=== PATIENT | male | born 1955 | race Caucasian/White ===

== ENCOUNTER → 2020-04-05 12:16 | Outpatient (BNVA) | payer OTHER, SELFPAY | PROVIDERS: PCP Internal Medicine; Visit Provider Orthopaedic Surgery | DX: Z76.89 Persons encountering health services in other specified circumstances (principal) ==

== ENCOUNTER 2021-03-05 07:06 | Outpatient (REF) | payer OTHER, SELFPAY ==
[2021-03-05 11:36] LABS: Alanine Aminotransferase 15 U/L (0-40); Anion Gap 12 (12-20); Aspartate Amino Transferase 16 U/L (5-37); Blood Urea Nitrogen 14 mg/dL (9-16); Carbon Dioxide 26 mmol/L (22-29); Chloride 102 mmol/L (96-108); Cholesterol 197 mg/dL; Estimated Glomerular Filt Rate > 60; Glucose Fasting 97 mg/dL (60-99); HDL Cholesterol 70 mg/dL; LDL Cholesterol Calculated 117 mg/dl; Potassium 4.4 mmol/L (3.3-5.1); Sodium 136 mmol/L (135-145); Triglycerides 52 mg/dL
[2021-03-05 11:51] LABS: PSA,Total (Free>4and<10) 0.32 ng/mL (0.00-4.00)
== END 2021-03-05 07:07 | disposition home or self-care (01) ==
LOC: HO.HMGCLDS 07:06
PROVIDERS: PCP Internal Medicine; Visit Provider Internal Medicine
DX: Z00.00 Encounter for general adult medical examination without abnormal findings (principal); I10 Essential (primary) hypertension; Z12.5 Encounter for screening for malignant neoplasm of prostate
CPT/HCPCS: 36415; 80048; 80061; 84153; 84450; 84460

== ENCOUNTER 2021-04-25 15:07 | Outpatient (REF) | payer OTHER, SELFPAY ==
--- NOTE | ~2021-04-25 | CT_ITS ---
EXAMINATION: CT CHEST SCREENING CLINICAL INFORMATION: Current smoker. 45 pack year history. COMPARISON: Previous chest CT most recent November 2019 TECHNIQUE: Multidetector volumetric CT imaging of the chest is performed without contrast using low dose technique. Additional 2-D coronal and sagittal reformatted images and axial 3-D maximum intensity projection (MIP) images are generated on the CT workstation. This CT examination was performed using dose optimization techniques as appropriate, variously including the following: *Automated exposure control *Adjustment of mA and/or kV according to patient size (this includes techniques or standardized protocols for targeted exams where dose is matched to indication/reason for exam; i.e. extremities or head) *Use of iterative reconstruction technique DLP: 191 mGy-cm FINDINGS: LUNGS: There is evidence of mild paraseptal emphysema. There are multiple new 1-2 mm bilateral predominantly upper lobe nodules or micronodules. Largest nodule measures 2 mm in the right upper lobe axial image 170 series 5. This is probably related to respiratory bronchiolitis or airways disease. There is no endobronchial or endotracheal lesion. MEDIASTINUM: There is coronary artery calcification. The mediastinum is otherwise normal. PLEURA: There is no pleural effusion. No pleural mass or thickening. AXILLA: No lymphadenopathy. UPPER ABDOMEN: Unremarkable. OSSEOUS STRUCTURES: There are degenerative changes of the spine. CT/CT lung screening IMPRESSION: Mild paraseptal emphysema. Multiple new predominantly upper lobe nodules or micronodules probably related to respiratory bronchiolitis from smoking. Differential would include hypersensitivity pneumonitis and granulomatous disease. Coronary artery calcification. ASSESSMENT: Lung-RADS category 2: Benign. RECOMMENDATION: Annual low-dose chest CT followup recommended.
== END 2021-04-25 15:08 | disposition home or self-care (01) ==
LOC: HO.CT 15:07
PROVIDERS: Visit Provider Physician Assistant Medical
DX: F17.210 Nicotine dependence, cigarettes, uncomplicated (principal)
CPT/HCPCS: 71271

== ENCOUNTER 2022-03-18 07:35 | Outpatient (REF) | payer OTHER, SELFPAY ==
[2022-03-18 12:20] LABS: Alanine Aminotransferase 14 U/L (0-40); Albumin Level 4.2 g/dL (3.5-5.0); Alkaline Phosphatase 61 U/L (39-117); Anion Gap 11 (12-20); Aspartate Amino Transferase 17 U/L (5-37); Bilirubin Total 0.6 mg/dL (0.0-1.0); Blood Urea Nitrogen 21 mg/dL (9-16); Calcium 9.1 mg/dL (8.4-10.2); Carbon Dioxide 27 mmol/L (22-29); Chloride 97 mmol/L (96-108); Cholesterol 209 mg/dL; Estimated Glomerular Filt Rate > 60; Glucose Fasting 94 mg/dL (60-99); HDL Cholesterol 74 mg/dL; LDL Cholesterol Calculated 124 mg/dl; PSA,Total (Free>4and<10) 0.85 ng/mL (0.00-4.00); Potassium 4.4 mmol/L (3.3-5.1); Sodium 131 mmol/L (135-145); Total Protein 7.1 g/dL (6.5-8.0); Triglycerides 59 mg/dL
== END 2022-03-18 07:36 | disposition home or self-care (01) ==
LOC: HO.HMGCLDS 07:35
PROVIDERS: PCP Internal Medicine; Visit Provider Internal Medicine
DX: Z00.01 Encounter for general adult medical examination with abnormal findings (principal); Z12.5 Encounter for screening for malignant neoplasm of prostate; Z71.89 Other specified counseling; F17.200 Nicotine dependence, unspecified, uncomplicated
CPT/HCPCS: 36415; 80053; 80061; 82306; 84153

== ENCOUNTER 2022-04-18 09:33 | Outpatient (REF) | payer OTHER, SELFPAY ==
[2022-04-18 12:30] LABS: Influenza A PCR NEGATIVE (Negative); Influenza B PCR NEGATIVE (Negative); Resp Syncy Virus RNA Qual PCR NEGATIVE (Negative); SARS COV2 PCR INHOUSE NEGATIVE (Negative)
== END 2022-04-18 09:34 | disposition home or self-care (01) ==
LOC: HO.LAB 09:33
PROVIDERS: Visit Provider Internal Medicine
DX: Z20.822 Contact with and (suspected) exposure to COVID-19 (principal); R43.9 Unspecified disturbances of smell and taste
CPT/HCPCS: 0241U

== ENCOUNTER 2023-03-02 13:50 | Outpatient (REF) | payer OTHER, SELFPAY ==
--- NOTE | ~2023-03-02 | CT_ITS ---
EXAMINATION: CT CHEST SCREENING CLINICAL INFORMATION: Current smoker with 45 pack-year smoking history COMPARISON: Previous CTs, most recent, 04/25/2021 11 TECHNIQUE: Multidetector volumetric CT imaging of the chest is performed without contrast using low dose technique. Additional 2D coronal and sagittal reformatted images and axial 3D maximum intensity projection (MIP) images are generated on the CT workstation. This CT examination was performed using dose optimization techniques as appropriate, variously including the following: *Automated exposure control *Adjustment of mA and/or kV according to patient size (this includes techniques or standardized protocols for targeted exams where dose is matched to indication/reason for exam; i.e. extremities or head) *Use of iterative reconstruction technique DLP: 44 mGy-cm FINDINGS: [employer]: Hyperinflated but clear lungs. Degenerative changes and scoliosis. LUNGS: Trachea and bronchi are patent. Mild bronchial wall thickening. Centrilobular emphysema and hyperinflation. Minor lingular atelectasis. No consolidations or groundglass opacities. No suspicious lung nodules. Scattered micronodules. New 2 mm subpleural MISSAEL nodule, 4:19. MEDIASTINUM: Unremarkable thyroid. Nonspecific mediastinal lymph nodes. Nonenlarged heart. Trace pericardial thickening/fluid. Nonaneurysmal aorta with atherosclerotic calcifications. Nonenlarged pulmonary arteries. CORONARY ARTERY CALCIFICATION: Moderately severe. PLEURA: There is no pleural effusion. No pleural mass or thickening. AXILLA: No lymphadenopathy. UPPER ABDOMEN: Unremarkable OSSEOUS STRUCTURES: Prominent anterior osteophytes. No suspicious osseous lesions. CT/CT lung screening IMPRESSION: Small pulmonary nodules as described. ASSESSMENT: Lung-RADS category 2: Benign RECOMMENDATION: Routine annual low-dose CT screening in 12 months.
== END 2023-03-02 13:51 | disposition home or self-care (01) ==
LOC: HO.CT 13:50
PROVIDERS: PCP Internal Medicine; Visit Provider Physician Assistant Medical
DX: Z12.2 Encounter for screening for malignant neoplasm of respiratory organs (principal); F17.210 Nicotine dependence, cigarettes, uncomplicated
CPT/HCPCS: 71271

== ENCOUNTER 2023-03-23 07:47 | Outpatient (AMB) | payer OTHER, SELFPAY ==
--- NOTE | 2023-03-23 08:05 | MHC.PC.OV ---
Vital Signs 03/23/23 08:06 Height 5 ft 9 in Weight 144 lb 2 oz BMI 21.3 BP 130/72 Blood Pressure Location Rt brachial Position Sitting Pulse 69 Pulse Source Pulse Oximeter Pulse Oximetry (%) 99 Oxygen Delivery Method Room Air Intake Visit Reasons: Annual Physical - due for colonoscopy Intake Note: Pt is here for his Annual PE Allergies No Known Allergies [No Known Allergies*] Allergy (Verified 03/23/23 08:22) Medication List - Last Reconciled 03/23/23 by Valentine Polanco MD sildenafil 100 mg PO DAILY PRN Tobacco use date assessed: 03/23/23 Fall risk assessment: No Falls in past year Last assessed Fall Risk: 03/23/23 Dental Screening Dental Screen Date: 03/23/23 Did you have a dental visit in the last 12 months?: Yes Did you have a dental problem in the last 6 months where you did not have access to dental care?: No Was dental information given to patient?: Patient has dentist HPI HPI Comments History of Present Illness Details 68-year-old male here today for physical exam . No complaints at present time except for recurrent rectal dysfunction, requesting a refill on his sildenafil. He was found to have central lobular emphysema on a low-dose CT scan done March 02 but patient remains asymptomatic he however continues to smoke cigarettes, with no desire to quit at present time . [facility] Medical History (Updated 03/23/23 @ 08:50 by Valentine Polanco MD) Vitamin D deficiency Emphysema lung Smoker unmotivated to quit Erectile dysfunction Surgical History History of rotator cuff surgery Family History Father ETOH abuse Myocardial infarction CVD (cardiovascular disease) Mother Stomach cancer Sister Diabetes mellitus Sister Diabetes mellitus Sister Breast cancer CAD (coronary artery disease) Brother CVD (cardiovascular disease) Myocardial infarction Cancer Daughter Substance use disorder Social History Housing: House Alcohol intake: current Patient Tobacco Use Status: Current everyday Tobacco user Cigarette Packs Per Day: 1 Cigarettes Per Day: 20.0 e-Cigarette/Vaping Use: Never Used Second Hand Smoke Exposure: No service: No Current occupational status: employed 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 1. Little interest or pleasure in doing things: not at all 2. Feeling down, depressed, or hopeless: not at all 3. Trouble falling or staying asleep, or sleeping too much: not at all 4. Feeling tired or having little energy: not at all 5. Poor appetite or overeating: not at all 6. Feeling bad about yourself - or that you are a failure or have let yourself or your family down: not at all 7. Trouble concentrating on things, such as reading the newspaper or watching television: not at all 8. Moving or speaking so slowly that other people could have noticed. Or the opposite - being so fidgety or restless that you have been moving around a lot more than usual: not at all 9. Thoughts that you would be better off or of hurting yourself in some way: not at all Total score: 0 Depression Screening Interpretation: Negative Depression Screening Done: Yes 33206 - PHQ-9 Billing: Yes Source: Developed by Drs. Milad Celaya, Nidia Taylor, Mauro Frost and colleagues, with an educational blayne from [employer]. Thrive Questionnaire Date Thrive assessed: 03/23/23 I am a: Patient What is your living situation today?: I have a steady place to live Within the past 12 months, did the food you bought not last and you didn't have the money to get more?: Never true Within the past 12 months, did you worry whether your food would run out before you got money to buy more?: Never true Do you have trouble paying for medicines?: No Do you have trouble getting transportation to medical appointments?: No Do you have trouble paying your heating and electricity bill?: No Do you have trouble taking care of your child, family member or friend?: No Do you have trouble with day-to-day activities such as bathing, preparing meals, shopping, managing finances, etc.?: No Are you currently unemployed and looking for a job?: No Are you interested in more education?: No AUDIT C Alcohol Use Questionnaire (AUDIT-C) 1. How often do you have a drink containing alcohol?: 4 or more times a week 2. How many drinks containing alcohol do you have on a typical day when you are drinking?: 5 or 6 3. How often do you have six or more drinks on one occasion?: Daily or almost daily Total Score: 10 CHRISTY-7 AMB Questionnaire CHRISTY-7 Date CHRISTY - 7 assessed: 03/23/23 Feeling nervous, anxious, or on edge: 0 = Not at all Not being able to stop or control worryin = Not at all Worrying too much about different things: 0 = Not at all Trouble relaxin = Not at all Being so restless that it is hard to sit still: 0 = Not at all Becoming easily annoyed or irritable: 0 = Not at all Feeling afraid as if something awful might happen: 0 = Not at all Total CHRISTY-7 score (0-4 normal; 5-9 mild; 10-14 moderate; 15-21 severe): 0 Source: Developed by Drs. Milad Celaya, Nidia Taylor, Mauro Frost and colleagues, with an educational blayne from [employer]. CHRISTY-7 Assessment Billing CHRISTY-7 Assessment Tool: CHRISTY-7 Assessment 87501 Review of Systems Const Denies body aches, Denies fatigue, Denies fever(s), Denies headache(s) and Denies weakness Eyes Details: Seen at [facility] Ophthalmology Department,no change in vision Denies change in vision and Reports requires corrective lenses ENT Reports Normal hearing present, Denies dizziness, Denies headache(s), Denies nasal congestion, Denies nasal discharge and Denies sore throat Card Denies chest pain, Denies lightheadedness, Denies palpitations and Denies dyspnea Resp Denies chest congestion, Denies cough, Denies dyspnea and Denies wheezing GI Denies abdominal pain, Denies melena, Denies hematochezia, Denies change in bowel habits and Denies heartburn Reports erectile dysfunction, Denies genital lesions, Denies genital pain, Denies dysuria, Denies nocturia, Denies penile discharge, Denies testicular mass, Denies urinary frequency and Denies urinary urgency Musc Reports stiffness Skin/Breast Denies lesions and Denies rash Neuro Reports Normal hearing present, Denies dizziness, Denies headache(s), Denies Sensory deficit (Neuro) and Denies weakness Psych Reports as per HPI Endo Denies fatigue, Denies polydipsia, Denies polyuria and Denies palpitations Julio/Lymph Denies easy bruising Aller/Immun Denies seasonal rhinorrhea and Denies wheezing Physical exam (Primary Care) Vital Signs: Last Vital Signs Pulse 69 03/23/23 08:06 BP 130/72 03/23/23 08:06 Pulse Ox 99 03/23/23 08:06 Oxygen Delivery Method Room Air 03/23/23 08:06 BMI result Body Mass Index 21.3 Tobacco/Smoking Status: Tobacco use Status Tobacco use date assessed 03/23/23 03/23/23 08:14 Patient Tobacco Use Status Current everyday Tobacco 03/23/23 08:06 e-Cigarette/Vaping Use Never Used 03/23/23 08:06 PHQ-9: PHQ-9 Score PHQ-9: Total score 0 03/23/23 08:26 Depression Screening Interpretation: Negative Thrive Assessment: Date of Thrive Assessment Date Thrive assessed 03/23/23 03/23/23 08:17 Const General: cooperative, healthy appearing, no acute distress and alert Orientation/consciousness: patient oriented x3 Limitations: no limitations HENMT Head: Yes normocephalic Ears: hearing grossly normal bilaterally, external ears normal, TM's normal bilaterally and EAC's normal General nose exam: Normal external nose present and No nasal discharge present Face and sinus: Yes face symmetric Mouth: tongue normal, oropharynx normal and moist mucous membranes Eyes Conjunctivae: conjunctivae normal Sclerae: sclerae normal Pupils: Equal, round and reactive pupils present EOM: EOMs intact bilaterally Neck Neck: Yes full ROM and Yes no lymphadenopathy Thyroid: Thyroid normal Carotids: normal carotid upstroke Lymphatic: no lymphadenopathy noted Chest Chest palpation & inspection: normal inspection of the chest Resp Effort & Inspection: normal respiratory effort and able to speak in complete sentences Auscultation: diminished lung sounds bilateral Cardio Jugular venous distension: no JVD Rate: regular rate Rhythm: regular rhythm Heart sounds: S1 normal heart sound present and S2 normal heart sound present GI Inspection: Yes normal to inspection Palpation (GI): Soft to palpation Auscultation: normal bowel sounds General: Yes no CVA tenderness Male General Exam: Yes normal external exam, No hernia, No inguinal lymphadenopathy and No Genital lesions present Penis: normal penis and No Genital lesions present Back/Spine/Pelvis Back: no CVA tenderness Skin General skin exam: no rashes or lesions noted Neuro General: patient oriented x3, gait normal, moves all extremities, no focal motor deficits and CN's II-XI intact bilaterally Cranial nerves: Yes Equal, round and reactive pupils present and Yes Normal hearing present Cognition (Neuro): normal cognition Gait exam (Neuro): Normal gait present Motor exam (neuro): 5/5 motor strength present throughout Sensory Exam: No Sensory deficit (Neuro) Extrem General: Yes normal to inspection, Yes full ROM, Yes no pedal edema and Yes normal gait Psych Appearance: grossly normal and well kempt Mental Status: mental status grossly normal Speech and movement: Normal speech and movement present Affect: normal affect Attitude: cooperative Thought process: Normal thought process present Immunizations pneumoc 20-hetal conj-dip cr(PF) 0.5 mL IM syringe Performing Provider: Valentine Polanco MD Performing Location: [facility] Administered by: Sherry Pineda CMA on 03/23/23 08:38 Dose Route Admin Location Dispensed Lot Number Expiration Date [employer] 0.5 mL IM Left Deltoid 0.5 mL [id number] 12/14/23 9285-7851-26 Dezide/GT [employer] VIS Given Date VIS Provided VIS Publication Date 03/23/23 Single Vaccine 21 Eligibility Eligibility Date Funding Source Not [facility] Eligible 03/23/23 Private Assessment and Plan Assessment & Plan (1) Annual visit for general adult medical examination with abnormal findings: Code(s): Z00.01 - Encounter for general adult medical examination with abnormal findings Plan: Will check appropriate labs. Recommended dental visit every 6 months and regular eye exams, at least every 2 years, last seen at [facility] currently up-to-date. Take adequate calcium in diet and vitamin-D 3 at 2000 IU per cap once a day, in addition to weight-bearing exercises to help maintain good muscle tone and weight control. Instructed to do testicular exam check for any mass . Up-to-date with his COVID vaccination, flu shot, shingles vaccine, Prevnar 20 given today , advised to get RSV vaccine. Ordered Cologuard testing for colon cancer screening, patient understands that if it is negative he needs to repeated every 3 years and if it is positive he will need to be referred for colonoscopy . (2) Smoker unmotivated to quit: Code(s): F17.200 - Nicotine dependence, unspecified, uncomplicated Plan: Patient strongly advised to stop smoking, as smoking damages blood vessels, degenerative of joints and spine, damage to lungs and heart., predisposes to developing certain cancers like lung, breast, bladder, colon. Recommended to try decreasing cigarette use by 1-2 cigarettes a day. Advised to monitor what triggers are for smoking so that this can be discussed on the next office visit. We can discuss different options to quit smoking when ready. He gets yearly lung cancer screening done at [facility], last low-dose CT done a month ago showed small pulmonary nodules 2 mm in size which were benign, repeat screening again in a year. (3) Emphysema lung: Code(s): J43.9 - Emphysema, unspecified Qualifiers: Emphysema type: centrilobular Qualified Code(s): J43.2 - Centrilobular emphysema Plan: Patient currently asymptomatic , states he does not need any inhalers. Again strongly advised to quit smoking (4) Vitamin D deficiency: Code(s): E55.9 - Vitamin D deficiency, unspecified Plan: Ordered another vitamin-D level (5) Erectile dysfunction: Code(s): N52.9 - Male erectile dysfunction, unspecified Qualifiers: Erectile dysfunction type: unspecified Qualified Code(s): N52.9 - Male erectile dysfunction, unspecified Plan: Refill sent for sildenafil . Orders: Orders Lipid Panel Today E55.9 - Vitamin D deficiency, unspecified, F17.200 - Nicotine dependence, unspecified, uncomplicated, J43.9 - Emphysema, unspecified, Z00.01 - Encounter for general adult medical examination with abnormal findings Hemoglobin and Hematocrit Today E55.9 - Vitamin D deficiency, unspecified, F17.200 - Nicotine dependence, unspecified, uncomplicated, J43.9 - Emphysema, unspecified, Z00.01 - Encounter for general adult medical examination with abnormal findings Basic Metabolic Panel Fasting Today E55.9 - Vitamin D deficiency, unspecified, F17.200 - Nicotine dependence, unspecified, uncomplicated, J43.9 - Emphysema, unspecified, Z00.01 - Encounter for general adult medical examination with abnormal findings Pneumococcal 20 Immunization Today Z23 - Encounter for immunization Aspartate Amino Transferase Today E55.9 - Vitamin D deficiency, unspecified, F17.200 - Nicotine dependence, unspecified, uncomplicated, J43.9 - Emphysema, unspecified, Z00.01 - Encounter for general adult medical examination with abnormal findings Alanine Aminotransferase Today E55.9 - Vitamin D deficiency, unspecified, F17.200 - Nicotine dependence, unspecified, uncomplicated, J43.9 - Emphysema, unspecified, Z00.01 - Encounter for general adult medical examination with abnormal findings Vitamin D 25-OH Total Today E55.9 - Vitamin D deficiency, unspecified, F17.200 - Nicotine dependence, unspecified, uncomplicated, J43.9 - Emphysema, unspecified, Z00.01 - Encounter for general adult medical examination with abnormal findings PSA,Total (Free>4and<10) Today E55.9 - Vitamin D deficiency, unspecified, F17.200 - Nicotine dependence, unspecified, uncomplicated, J43.9 - Emphysema, unspecified, Z00.01 - Encounter for general adult medical examination with abnormal findings Referrals Cologuard Test Z12.11 - Encounter for screening for malignant neoplasm of colon, Z12.12 - Encounter for screening for malignant neoplasm of rectum Medications: Refilled sildenafil administer 30 minutes to 4 hours before activity 100 mg PO DAILY PRN 14 tabs 1RF sexual activity Coding Level of Care Code Est Pt Prev Care >65y(45386) Diagnoses Annual visit for general adult medical examination with abnormal findings Z00.01 Smoker unmotivated to quit F17.200 Centrilobular emphysema J43.2 Emphysema type: centrilobular Vitamin D deficiency E55.9 Erectile dysfunction, unspecified erectile dysfunction type N52.9 Erectile dysfunction type: unspecified Additional Codes CHRISTY-7 Assessment Billing - CHRISTY-7 Assessment Tool: CHRISTY-7 Assessment 75003 ([id number])
[2023-03-23 08:06] VITALS: BP 130/72; PULSE 69; O2SAT 99; BMI 21.3
== END 2023-03-23 08:49 | disposition home or self-care (01) ==
PROVIDERS: Visit Provider Internal Medicine
DX: Z00.00 Encounter for general adult medical examination without abnormal findings (principal); F17.210 Nicotine dependence, cigarettes, uncomplicated; J43.2 Centrilobular emphysema; Z23 Encounter for immunization; E55.9 Vitamin D deficiency, unspecified; N52.9 Male erectile dysfunction, unspecified
CPT/HCPCS: 90471; 90677; 99397

== ENCOUNTER 2023-03-31 06:40 | Outpatient (REF) | payer OTHER, SELFPAY ==
[2023-03-31 11:04] LABS: Hematocrit 42.7 % (42.0-52.0); Hemoglobin 14.5 g/dl (14.0-18.0)
[2023-03-31 11:24] LABS: Alanine Aminotransferase 12 U/L (0-40); Anion Gap 13 (12-20); Aspartate Amino Transferase 18 U/L (5-37); Blood Urea Nitrogen 15 mg/dL (9-16); Calcium 9.3 mg/dL (8.4-10.2); Carbon Dioxide 28 mmol/L (22-29); Chloride 100 mmol/L (96-108); Cholesterol 181 mg/dL (<200); Estimated Glomerular Filt Rate > 60; Glucose Fasting 103 mg/dL (60-99); HDL Cholesterol 73 mg/dL (>40); LDL Cholesterol Calculated 100 mg/dL (<100); Potassium 4.6 mmol/L (3.3-5.1); Sodium 136 mmol/L (135-145); Triglycerides 43 mg/dL (<150)
[2023-03-31 11:38] LABS: PSA,Total (Free>4and<10) 0.35 ng/mL (0.00-4.00)
[2023-03-31 11:40] LABS: Vitamin D 25-OH Total 38.6 ng/mL (>30)
== END 2023-03-31 06:41 | disposition home or self-care (01) ==
LOC: HO.HMGCLDS 06:40
PROVIDERS: PCP Internal Medicine; Visit Provider Internal Medicine
DX: Z00.01 Encounter for general adult medical examination with abnormal findings (principal); Z12.5 Encounter for screening for malignant neoplasm of prostate; J43.9 Emphysema, unspecified; E55.9 Vitamin D deficiency, unspecified; F17.200 Nicotine dependence, unspecified, uncomplicated
CPT/HCPCS: 36415; 80048; 80061; 82306; 84153; 84450; 84460; 85014; 85018

== ENCOUNTER 2023-10-04 08:09 | Outpatient (AMB) | payer OTHER, SELFPAY ==
[2023-10-04 08:22] VITALS: BP 122/80; PULSE 72; TEMP 36.8; O2SAT 97; BMI 21.3
--- NOTE | 2023-10-04 08:22 | AM.OFFWIN_ITS ---
Intake Vital Signs 10/04/23 08:22 Height 5 ft 9 in Weight 144 lb BMI 21.3 BP 122/80 Blood Pressure Location Lt brachial Position Sitting Pulse 72 Pulse Source Pulse Oximeter Temp 98.2 F Temp Source Oral Pulse Oximetry (%) 97 Intake Visit Reasons: EP Wax removal-possible both Intake Note: pt is here for wax removal possibly Patient Tobacco Use Status: Current everyday Tobacco user Allergies No Known Allergies [No Known Allergies*] Allergy (Verified 10/04/23 08:24) Do you need a note to return to daycare/school/sports/work: No HPI HPI Comments History of Present Illness Details Patient is a 68-year-old male in today for sick visit. Patient has complained diminished hearing in bilateral ears, states that he often has cerumen impaction bilaterally. States that his right ear is worse than his left and he is barely able to hear out of it. Has been utilizing debrox drops at home with mild effect. Patient denies headache dizziness fever or chills. [facility] Medical History (Updated 10/04/23 @ 09:05 by ANNIE Pride) Vitamin D deficiency Emphysema lung Smoker unmotivated to quit Erectile dysfunction Surgical History History of rotator cuff surgery Family History Father ETOH abuse Myocardial infarction CVD (cardiovascular disease) Mother Stomach cancer Sister Diabetes mellitus Sister Diabetes mellitus Sister Breast cancer CAD (coronary artery disease) Brother CVD (cardiovascular disease) Myocardial infarction Cancer Daughter Substance use disorder Social History Housing: House Alcohol intake: current Patient Tobacco Use Status: Current everyday Tobacco user Cigarette Packs Per Day: 1 Cigarettes Per Day: 20.0 e-Cigarette/Vaping Use: Never Used Second Hand Smoke Exposure: No service: No Current occupational status: employed 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 Oriented X3.? No acute distress.? Head: Normocephalic Ears: Bilateral cerumen impaction of bilateral ears. Respiratory: No respiratory distress.? Skin: Skin warm and dry.? Normal skin color.? Normal skin turgor.? Extremities: +[place] on sole of right foot. Neuro: Oriented X 3.? No motor deficit.? No sensory deficit. Office Procedures Cerumen Removal From which ear canal was the cerumen removed: bilateral Removal: irrigation Notes: patient tolerated procedure well [id number] Irrigation/Lavage Assessment & Plan Assessment & Plan (1) Bilateral impacted cerumen: Comment: Patient had bilateral ear lavage in the office with good effect. Code(s): H61.23 - Impacted cerumen, bilateral (2) [place] of foot: Comment: Will send podiatry referral Code(s): L84 - Corns and callosities Plan: Follow-up with PCP Plan Follow-up PCP Orders: Orders AMB Cerumen Removal Today H61.23 - Impacted cerumen, bilateral Referrals Podiatry Referral L84 - Corns and callosities Coding Level of Care Code Est Pt Level 3 (13172) Diagnoses Bilateral impacted cerumen H61.23 [place] of foot L84 CPT Codes Office Procedure - CPT: 73801-[place] Irrigation/Lavage ([id number]) Time Spent (min) 24
== END 2023-10-04 09:49 | disposition home or self-care (01) ==
PROVIDERS: PCP Internal Medicine; Visit Provider Nurse Practitioner Primary Care
DX: H61.23 Impacted cerumen, bilateral (principal); L84 Corns and callosities
CPT/HCPCS: 69209; 99213

== ENCOUNTER 2024-03-06 15:23 | Outpatient (REF) | payer OTHER, SELFPAY | END 2024-03-06 15:24 | disposition home or self-care (01) | LOC: HO.CT 15:23 | PROVIDERS: PCP Internal Medicine; Visit Provider Physician Assistant Medical | DX: Z12.2 Encounter for screening for malignant neoplasm of respiratory organs (principal); F17.210 Nicotine dependence, cigarettes, uncomplicated | CPT/HCPCS: 71271 ==

== ENCOUNTER → 2024-03-06 15:25 | Outpatient (BNV) | payer OTHER, SELFPAY | PROVIDERS: PCP Internal Medicine; Visit Provider Radiology Diagnostic Radiology | DX: Z12.2 Encounter for screening for malignant neoplasm of respiratory organs (principal); Z87.891 Personal history of nicotine dependence | CPT/HCPCS: 71271 ==

== ENCOUNTER 2024-03-31 08:00 | Outpatient (AMB) | payer OTHER, SELFPAY ==
--- NOTE | 2024-03-31 08:02 | A.OFFPC_ITS ---
Vital Signs 03/31/24 08:06 Height 5 ft 9 in Weight 143 lb BMI 21.1 BP 134/60 Blood Pressure Location Rt brachial Position Sitting Pulse 87 Pulse Source Pulse Oximeter Pulse Oximetry (%) 100 Oxygen Delivery Method Room Air Intake Visit Reasons: Annual Physical - due for colonoscopy Intake Note: Pt is here today for his PE: Last cologuard is 04/11/23 Allergies No Known Allergies [No Known Allergies*] Allergy (Verified 03/31/24 08:40) Medication List - Last Reconciled 03/31/24 by Valentine Polanco MD sildenafil 100 mg PO DAILY PRN Tobacco use date assessed: 03/31/24 Fall risk assessment: No Falls in past year Last assessed Fall Risk: 03/31/24 Dental Screening Dental Screen Date: 03/31/24 Did you have a dental visit in the last 12 months?: Yes Did you have a dental problem in the last 6 months where you did not have access to dental care?: No Was dental information given to patient?: Patient has dentist HPI Annual Physical - due for colonoscopy HPI Details - The patient is a 69 year old male pres enting for his physical exam - Emphysema diagnosed previously. No rec ent pulmonary function test noted. Chronic smoking, cigarettes, one pack per day. Not on any inhalers. Complains of a cough usually in the morning, but denies any shortness of breath - Hearing loss noted, associated with po tential occupational noise exposure.. - Recurrent plantar wart treated previou sly, with potential for recurrence. - Patient also reports daily alcohol con sumption of 2 to sometimes 6 beers daily. Has no desire to cut back nor does he want to attend alcoholic anonymous, aware of the consequences of continued drinking. [facility] Medical History (Updated 04/06/24 @ 22:04 by Valentine Polanco MD) Alcohol use disorder Emphysema lung Nicotine dependence, cigarettes, uncomplicated Vitamin D deficiency Erectile dysfunction Surgical History History of rotator cuff surgery Family History Father ETOH abuse Myocardial infarction CVD (cardiovascular disease) Mother Stomach cancer Sister Diabetes mellitus Sister Diabetes mellitus Sister Breast cancer CAD (coronary artery disease) Brother CVD (cardiovascular disease) Myocardial infarction Cancer Daughter Substance use disorder Social History Housing: House Alcohol intake: current Patient Tobacco Use Status: Current everyday Tobacco user Cigarette Packs Per Day: 1 Cigarettes Per Day: 20.0 e-Cigarette/Vaping Use: Never Used Second Hand Smoke Exposure: No service: No Current occupational status: employed 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 1. Little interest or pleasure in doing things: not at all 2. Feeling down, depressed, or hopeless: not at all 3. Trouble falling or staying asleep, or sleeping too much: not at all 4. Feeling tired or having little energy: not at all 5. Poor appetite or overeating: not at all 6. Feeling bad about yourself - or that you are a failure or have let yourself or your family down: not at all 7. Trouble concentrating on things, such as reading the newspaper or watching television: not at all 8. Moving or speaking so slowly that other people could have noticed. Or the opposite - being so fidgety or restless that you have been moving around a lot more than usual: not at all 9. Thoughts that you would be better off or of hurting yourself in some way: not at all Total score: 0 Depression Screening Interpretation: Negative Depression Screening Done: Yes 00474 - PHQ-9 Billing: Yes Source: Developed by Drs. Milad Celaya, Nidia Taylor, Mauro Frost and colleagues, with an educational blayne from [employer]. Thrive Questionnaire Date Thrive assessed: 03/31/24 I am a: Patient What is your living situation today?: I have a steady place to live Within the past 12 months, did the food you bought not last and you didn't have the money to get more?: Never true Within the past 12 months, did you worry whether your food would run out before you got money to buy more?: Never true Do you have trouble paying for medicines?: No Do you have trouble getting transportation to medical appointments?: No Do you have trouble paying your heating and electricity bill?: No Do you have trouble taking care of your child, family member or friend?: No Do you have trouble with day-to-day activities such as bathing, preparing meals, shopping, managing finances, etc.?: No Are you currently unemployed and looking for a job?: No Are you interested in more education?: No THRIVE Score: 0 AUDIT C Alcohol Use Questionnaire (AUDIT-C) 1. How often do you have a drink containing alcohol?: 4 or more times a week 2. How many drinks containing alcohol do you have on a typical day when you are drinking?: 5 or 6 3. How often do you have six or more drinks on one occasion?: Weekly Total Score: 9 Score Reviewed/Action Taken: Yes (Patient counseled on dangers of drinking, no desire to quit ) CHRISTY-7 AMB Questionnaire CHRISTY-7 Date CHRISTY - 7 assessed: 03/31/24 Feeling nervous, anxious, or on edge: 0 = Not at all Not being able to stop or control worryin = Not at all Worrying too much about different things: 0 = Not at all Trouble relaxin = Not at all Being so restless that it is hard to sit still: 0 = Not at all Becoming easily annoyed or irritable: 0 = Not at all Feeling afraid as if something awful might happen: 0 = Not at all Total CHRISTY-7 score (0-4 normal; 5-9 mild; 10-14 moderate; 15-21 severe): 0 Source: Developed by Drs. Milad Celaya, Nidia Taylor, Mauro Frost and colleagues, with an educational blayne from [employer]. CHRISTY-7 Assessment Billing CHRISTY-7 Assessment Tool: CHRISTY-7 Assessment 88208 Review of Systems Const Denies body aches, Denies fatigue, Denies fever(s), Denies headache(s) and Denies weakness Eyes Details: Seen at [facility] Ophthalmology Department,no change in vision Reports requires corrective lenses ENT Details: Bilateral impacted cerumen Reports Normal hearing present, Denies dizziness, Denies headache(s), Denies nasal congestion, Denies nasal discharge and Denies sore throat Card Denies chest pain, Denies lightheadedness, Denies palpitations and Denies dyspnea Resp Reports as per HPI, Denies chest congestion, Denies dyspnea and Denies wheezing GI Denies abdominal pain, Denies melena, Denies hematochezia, Denies change in bowel habits and Denies heartburn Reports erectile dysfunction, Denies genital lesions, Denies dysuria, Denies nocturia, Denies penile discharge, Denies testicular mass, Denies urinary frequency and Denies urinary urgency Musc Reports stiffness Skin/Breast Denies lesions and Denies rash Neuro Reports Normal hearing present, Denies dizziness, Denies headache(s), Denies Sensory deficit (Neuro) and Denies weakness Psych Reports as per HPI Endo Denies fatigue, Denies polydipsia, Denies polyuria and Denies palpitations Julio/Lymph Denies easy bruising Aller/Immun Denies seasonal rhinorrhea and Denies wheezing Physical exam (Primary Care) Vital Signs: Last Vital Signs Pulse 87 03/31/24 08:06 BP 134/60 03/31/24 08:06 Pulse Ox 100 03/31/24 08:06 Oxygen Delivery Method Room Air 03/31/24 08:06 BMI result Body Mass Index 21.1 Tobacco/Smoking Status: Tobacco use Status Tobacco use date assessed 03/31/24 03/31/24 08:07 Patient Tobacco Use Status Current everyday Tobacco 03/31/24 08:04 e-Cigarette/Vaping Use Never Used 03/31/24 08:04 PHQ-9: PHQ-9 Score PHQ-9: Total score 0 03/31/24 08:41 Depression Screening Interpretation: Negative Thrive Assessment: Date of Thrive Assessment Date Thrive assessed 03/31/24 03/31/24 08:11 Const General: cooperative, healthy appearing, no acute distress and alert Orientation/consciousness: patient oriented x3 HENMT Head: Yes normocephalic Ears: external ears normal General nose exam: Normal external nose present and No nasal discharge present Face and sinus: Yes face symmetric Mouth: oropharynx normal and moist mucous membranes Eyes Conjunctivae: conjunctivae normal Sclerae: sclerae normal Pupils: Equal, round and reactive pupils present EOM: EOMs intact bilaterally Neck Neck: Yes full ROM and Yes no lymphadenopathy Thyroid: Thyroid normal Chest Chest palpation & inspection: normal inspection of the chest Resp Effort & Inspection: normal respiratory effort and able to speak in complete sentences Auscultation: diminished lung sounds bilateral Cardio Jugular venous distension: no JVD Rate: regular rate Rhythm: regular rhythm Heart sounds: S1 normal heart sound present and S2 normal heart sound present GI Inspection: Yes normal to inspection Palpation (GI): Soft to palpation Auscultation: normal bowel sounds General: Yes no CVA tenderness Male General Exam: Yes normal external exam, No hernia, No inguinal lymphadenopathy and No Genital lesions present Penis: normal penis and No Genital lesions present Back/Spine/Pelvis Back: no CVA tenderness Skin General skin exam: no rashes or lesions noted Neuro General: patient oriented x3, gait normal, moves all extremities, no focal motor deficits and CN's II-XI intact bilaterally Cranial nerves: Yes Equal, round and reactive pupils present and Yes Normal hearing present Cognition (Neuro): normal cognition Gait exam (Neuro): Normal gait present Motor exam (neuro): 5/5 motor strength present throughout Sensory Exam: No Sensory deficit (Neuro) Extrem General: Yes normal to inspection, Yes full ROM, Yes no pedal edema and Yes normal gait Psych Appearance: grossly normal and well kempt Mental Status: mental status grossly normal Speech and movement: Normal speech and movement present Affect: normal affect Attitude: cooperative Thought process: Normal thought process present Coding Level of Care Code Est Pt Prev Care >65y(48376) Diagnoses Annual visit for general adult medical examination with abnormal findings Z00. Centrilobular emphysema J43.2 Emphysema type: centrilobular Nicotine dependence, cigarettes, uncomplicated F17.210 Alcohol use disorder F10.90 Erectile dysfunction, unspecified erectile dysfunction type N52.9 Erectile dysfunction type: unspecified Bilateral impacted cerumen H61.23 Additional Codes PHQ-9 - 04577 - PHQ-9 Billing: Yes ([id number]) CHRISTY-7 Assessment Billing - CHRISTY-7 Assessment Tool: CHRISTY-7 Assessment 40389 ([id number]) Assessment & Plan Assessment & Plan (1) Annual visit for general adult medical examination with abnormal findings: Code(s): Z00.01 - Encounter for general adult medical examination with abnormal findings Plan: Will check appropriate labs. Advised regular dental cleaning, and regular eye exams, at least every 2 years. Take adequate calcium in diet and vitamin-D 3 at 2000 IU per cap once a day, in addition to weight-bearing exercises to help maintain good muscle tone and weight control. Instructed to do self-testicular exam to check for any mass. Reminded to get his yearly flu vaccine and COVID booster, up-to-date with pneumococcal vaccine and shingles vaccination as well as Tdap. Up-to-date with his colon cancer screening, had a negative Cologuard test done in March 2023 (2) Emphysema lung: Code(s): J43.9 - Emphysema, unspecified Category: Medical Qualifiers: Emphysema type: centrilobular Qualified Code(s): J43.2 - Centrilobular emphysema Plan: Strongly encouraged to quit smoking or cut back. Prescription sent for Symbicort 160-4.5 mcg per actuation 1-2 inhalations every 12 hours. Rinse mouth after use. (3) Nicotine dependence, cigarettes, uncomplicated: Comment: (>30pyh) Code(s): F17.210 - Nicotine dependence, cigarettes, uncomplicated Category: Medical Plan: Patient strongly advised to stop smoking, as smoking damages blood vessels, degenerative of joints and spine, damage to lungs and heart., predisposes to developing certain cancers like lung, breast, bladder, colon. Recommended to try decreasing cigarette use by 1-2 cigarettes a day. Advised to monitor what triggers are for smoking so that this can be discussed on the next office visit. We can discuss different options to quit smoking when ready. Gets yearly lung cancer screening, recently had a low-dose CT of lung, with results still pending (4) Alcohol use disorder: Code(s): F10.90 - Alcohol use, unspecified, uncomplicated Category: Medical Plan: Strongly encouraged to quit alcohol intake or cut back, declined referral for help with stopping alcohol use, aware of consequences of continued drinking, denies any withdrawal symptoms (5) Erectile dysfunction: Code(s): N52.9 - Male erectile dysfunction, unspecified Category: Medical Qualifiers: Erectile dysfunction type: unspecified Qualified Code(s): N52.9 - Male erectile dysfunction, unspecified Plan: Prescription refill sent for sildenafil to take as directed (6) Bilateral impacted cerumen: Code(s): H61.23 - Impacted cerumen, bilateral Category: Medical Plan: Attempted removal of cerumen but patient unable to tolerate removal with lighted ear curette, will reschedule for ear lavage Orders: Orders PSA,Total (Free>4and<10) 04/05/24 E55.9 - Vitamin D deficiency, unspecified, F17.210 - Nicotine dependence, cigarettes, uncomplicated, H61.23 - Impacted cerumen, bilateral, J43.2 - Centrilobular emphysema, N52.9 - Male erectile dysfunction, unspecified, Z00.01 - Encounter for general adult medical examination with abnormal findings Aspartate Amino Transferase 04/05/24 E55.9 - Vitamin D deficiency, unspecified, F17.210 - Nicotine dependence, cigarettes, uncomplicated, H61.23 - Impacted cerumen, bilateral, J43.2 - Centrilobular emphysema, N52.9 - Male erectile dysfunction, unspecified, Z00.01 - Encounter for general adult medical examination with abnormal findings Basic Metabolic Panel Fasting 04/05/24 E55.9 - Vitamin D deficiency, unspecified, F17.210 - Nicotine dependence, cigarettes, uncomplicated, H61.23 - Impacted cerumen, bilateral, J43.2 - Centrilobular emphysema, N52.9 - Male erectile dysfunction, unspecified, Z00.01 - Encounter for general adult medical examination with abnormal findings Lipid Panel 04/05/24 E55.9 - Vitamin D deficiency, unspecified, F17.210 - Nicotine dependence, cigarettes, uncomplicated, H61.23 - Impacted cerumen, bilateral, J43.2 - Centrilobular emphysema, N52.9 - Male erectile dysfunction, unspecified, Z00.01 - Encounter for general adult medical examination with abnormal findings Vitamin D 25-OH Total 04/05/24 E55.9 - Vitamin D deficiency, unspecified, F17.210 - Nicotine dependence, cigarettes, uncomplicated, H61.23 - Impacted cerumen, bilateral, J43.2 - Centrilobular emphysema, N52.9 - Male erectile dysfunction, unspecified, Z00.01 - Encounter for general adult medical examination with abnormal findings Alanine Aminotransferase 04/05/24 E55.9 - Vitamin D deficiency, unspecified, F17.210 - Nicotine dependence, cigarettes, uncomplicated, H61.23 - Impacted cerumen, bilateral, J43.2 - Centrilobular emphysema, N52.9 - Male erectile dysfunction, unspecified, Z00.01 - Encounter for general adult medical examination with abnormal findings Complete Blood Count Auto Diff 04/05/24 E55.9 - Vitamin D deficiency, unspecified, F17.210 - Nicotine dependence, cigarettes, uncomplicated, H61.23 - Impacted cerumen, bilateral, J43.2 - Centrilobular emphysema, N52.9 - Male erec tile dysfunction, unspecified, Z00.01 - Encounter for general adult medical examination with abnormal findings Medications: New budesonide-formoterol 160-4.5 mcg/actuation (Symbicort) 2 puffs inhalation Q12H 30 days 10.2 grams 2RF Refilled sildenafil administer 30 minutes to 4 hours before activity 100 mg PO DAILY PRN 14 tabs 1RF sexual activity
--- OUTSIDE RECORDS SUMMARY | 2024-03-31 08:02 | XMS_ITS ---
Author Organization [facility] Address [address] [place] [address] Care Team Providers Care Campus Executive Director Name Role Phone Collin GONGORA, Valentine Nguyen Primary Care Provider Un available Javier Donaldson Unavailable [phone] Allergies No Known Allergies REASON FOR VISIT Wart(s), Foot pain Social History Tobacco Use: Social History Observation Description Date Details (start date - stop date) Current Smoker NA - NA Tobacco Use/Smoking Question Answer Notes Are you a: current smoker How often do you smoke cigarettes? every day Additional Findings: Tobacco User Heavy cigarett e smoker (20-39 cigs/day) Alcohol Screen Question Answer Notes Did you have a drink containing alcohol in the p ast year? Yes Points 0 Interpretation Negative Tobacco use other than smoking: Question Answer Notes Are you an other tobacco user? No Problems Problem Type SNOMED Code ICD Code Onset Dates Problem Status W/U Status Risk Notes Problem Plantar wart (02220686) Plantar wart (B07.0) Active confirmed Vital Signs Height 5 ft 9 in in 01/11/2024 Weight 143 lbs lbs 01/11/2024 BMI 21.12 kg/m2 01/11/2024 Procedures Procedure Date Ordered Date Performed Result Body Sit e 40284-Swka Destruction, 1-14 01/11/2024 N/A Encounters Encounter Location Date Provider Diagnosis [facility] [address] [place] [address] 01/11/2024 Javier Donaldson Right foot pain M79.671 ; Plantar wart B07.0 ; Left foot pain M79.672 ; Pain in left foot M79.672 ; Pain in left ankle and joints of left foot M25.572 ; Bursitis of left foot M77.52 and Tailor's bunion of left foot M21.622 Assessments Encounter Date Diagnosis (ICD Code) Assessment Notes Treatment Notes Treatment Clinical Notes Section Notes 01/11/2024 Right foot pain (ICD-10 - M79.671) 01/11/2024 Plantar wart (ICD-10 - B07.0) 01/11/2024 Left foot pain (ICD-10 - M79.672) 01/11/2024 Pain in left foot (ICD-10 - M79.672) 01/11/2024 Pain in left ankle and joints of left foot (ICD-10 - M25.572) 01/11/2024 Bursitis of left foot (ICD-10 - M77.52) 01/11/2024 Tailor's bunion of left foot (ICD-10 - M21.622) Plan Of Treatment Pending Test Test Name Order Date 79680-Azrm Destruction, -14 01/11/2024 Next Appt Details Follow Up: prn, Reason: Procedure Notes * Category Sub-Category Detail Notes Wart Treatment Procedure Verrucae were de brided to pin-point bleeding margins with sterile 15 surgical blade, silver nitrate chemocautery applied, recomm. immune-boosting meds such as zinc, recomm. follow up with topical chemosurgical agents, recomm. Wartstick 40 percent Salicylic acid application under occlusion as directed, Pt defers any other forms of tx - 29312 Progress Notes * Johan LO MDOB:[birth year] (69 yo M)Acc No.[id number]:01/11/2024 Progress Notes Patient:?Johan Lo Provider:?Javier Donaldson DPM :1955???Age:69 Y???Sex:Male Zach e:01/11/2024 Address:[address] [place] [address], [id number] Pcp:Chika Vogt Subjective: * Chief Complaints: * ???Wart(s)Foot pain * HPI: ???Skin problems:?Pt States PCP Visit: ?DATE?04/17/2023 ???Foot Pain:?Location:?Outside, Bottom, Forefoot, LEFT.?Duration:?several weeks.?Course:?worse.?Aggravated:?any pressure, standing, walking.?Treatments:?rest/alter normal daily activity.? * ROS:?General/Constitutional:?Nausea?denies.?Vomiting?denies.?Hunger Thirst?denies.?Loss appetite?denies.?Chills?denies.?Fatigue?denies.?Fever?denies.?Night Sweats?denies.?Unexplained weight loss?denies.?Unexplained weight gain?denies.?HEENTM:?Dentures?denies.?Dizziness?denies.?Glasses/contacts?admits.?Retinopathy?de nies.?Blurred/double vision?denies.?TMJ?denies.?Discharge/drainage?denies.?Implants?denies.?Sore throat?denies.?Dental implants?denies.?Hard of hearing ?denies.?Difficulty chewing/swallowing/speaking?denies.?Nose bleeds?denies.?Sore mouth?denies.?Respiratory:?On Oxygen?denies.?Pneumonia/pleurisy?denies.?Bronchitis?denies.?Emphysema?denies.?C oughing?denies.?Cough blood?denies.?Shortness of breath?denies.?Wheezing?denies.?Cardiovascular:?Pacemaker?denies.?MVP?denies.?WPW?denies.?CHF?denies.?Heart attack?denies.?Septal defect?denies.?Rapid beat?denies.?Chest pain ?denies.?Atrial Fib.?denies.?Murmur/Palpitations?denies.?Gastrointestinal:?Hemorrhoids?denies.?Stomach/Abdominal pain?denies.?Dark blood stool?denies.?Irritable bowel ?denies.?Constipation?denies.?Diarrhea?denies.?Hematology:?Swelling?denies.?Clots?denies.?Varicose Veins?denies.?Bruising?denies.?Bleeding problem?denies.?Genitourinary:?Blood urine?denies.?Frequent/Painfu/urination/bladder control?denies.?Kidney stones?denies.?Infection (UTI)?denies.?Nephropathy?denies.?sex trans dis (STD)?denies.?Prostate?denies.?Musculoskeletal:?Hammertoes?denies.?Bunions?denies.?Back Pain?denies.?Muscle Cramps/ Resting?denies.?Muscle cramps / walking?denies.?Generalized aches and pains?denies.?Weakness?denies.?Integ.:?Felton?denies.?Scars?denies.?Corns/calluses?denies.?Ingrown nails?denies.?Painful nails?denies.?Open Sores?denies.?Rashes?denies.?Neurologic:?Difficulty sleeping?denies.?Brain disorder?denies.?Numbness?denies.?Balance trouble?denies.?Confusion?denies.?Fainting/blackouts?denies.?Tingling?denies.?Tr emors?denies.? * Medical History:? * Surgical History:?Denies Pas t Surgical History * Hospitalization/Major Diagno stic Procedure:?Denies Past Hospitalization * Family History:?Mother: dece ased, cancer, diagnosed with Diabetic - NIDDM.?Father: , heart attack.?Siblings: unknown, cancer- sisterheart attack- brother, diagnosed with Diabetic - NIDDM.? * Social History:?Tobacco Use:?Tobacco Use/Smoking?Are you a:?current smoker ?How often do you smoke cigarettes??every day ?Additional Findings: Tobacco User?Heavy cigarette smoker (20-39 cigs/day) ?Tobacco use other than smoking?Are you an other tobacco user??No ???Drugs/Alcohol:?Drugs?Have you used drugs other than those for medical reasons in the past 12 months??No ?Alcohol Screen?Did you have a drink containing alcohol in the past year??Yes ?Points?0 ?Interpretation?Negative ???Miscellaneous:?Caffeine: yes, frequency:, more than 4 cups per day. ?Exercise: golf. ?Marital status: . ?Occupation: [employer]. * Medications:?None * Allergies:?N.K.D.A.yes[Aller gies Verified] Objective: * Vitals:?Ht: 5 ft 9 in, Wt:14 3 lbs, BMI:21.12, Shoe size: 9.5, Ht-cm: 175.26 cm, Wt-k.86 kg. * Examination: ???Dermatologic: ?SKIN FINDINGS:?Skin exam reveals normal texture, elasticity, and turgor. There are no masses. The interspaces are clear.?VERRUCA:?Reveals Multiple ( 3), multi-loculated , mosaic-patterned, round, raised, flat-topped, petechial bleeding papule(s), with cauliflower appearance and interruption of skin lines, with pain to lateral compression, and size estimated at 2-5 mm diameter , plantar Forefoot , LEFT , plantar Heel , B/L.?Orthopedic: ?MUSCLE STRENGTH:?5/5 all groups in a symmetrical fashion , B/L.?TAILOR'S BUNION:?Prominent, painful, with?inflammation present,?5th MTH/MPJ, LEFT.?Neurological: ?SENSORY:?Neurological exam reveals intact sensorium, pain sensation normal, vibration sensation intact, pinprick sensation is normal in the lower extremities, Pt denies, anesthesia, burning, paresthesia, tingling, B/L.?TINEL'S COMPRESSION:? Negative, Lateral sural nerve distribution, Left.?DEEP TENDON REFLEXES:?Achilles, 2/4, B/L.?Neuroma Pain: ?PALPATION:?No interspace pain noted on palpation.?General Examination: ?GENERAL APPEARANCE:?Reveals a pleasant, alert, well-nourished, well- developed, well hydrated individual, who demonstrates proper attention to hygiene/body habitus, and is in no acute distress, Pt serves as own?historian for office visit today.?ORIENTED:?person, place, and time.?Vascular: ?DP PULSES(B):?2/4, B/L.?PT PULSES(B):?2/4, B/L.?CAPILLARY FILL TIME:?immediate, all digits, B/L.?TROPHIC CONDITION-TEXTURE/ELASTICITY/TURGOR/HAIR GROWTH(B):?normal, B/L.?TEMPERTURE GRADIENT(C):?warm to cool, proximal to distal, B/L.?PIGMENTATION:?normal, B/L.?EDEMA(C):?absent, B/L.? Assessment: * Assessment: 1.?Plantar wart - B07.0 (Grace tyesha), B/L?2.?Right foot pain - M79.671?3.?Left foot pain - M79.672?4.?Pain in left foot - M79.672?5.?Pain in left ankle and joints of left foot - M25.572?6.?Bursitis of left foot - M77.52?7.?Tailor's bunion of left foot - M21.622, Acute problem, Uncomplicated (3)? Plan: * Treatment: * Procedures:?Wart Treatment:?Procedure?Verrucae were debrided to pin-point bleeding margins with sterile 15 surgical blade, silver nitrate chemocautery applied, recomm. immune-boosting meds such as zinc, recomm. follow up with topical chemosurgical agents, recomm. Wartstick 40 percent Salicylic acid application under occlusion as directed, Pt defers any other forms of tx - 31343.? * Procedure Codes:?44841 Wart Destruction, 1-14 * Preventive Medicine:? ??Counseling:?Discussion:?-03: Office or other outpatient visit for the evaluation and management of a new patient, which required a medically appropriate history and/or examination and LOW level of DECISION MAKING for: 1 STABLE ACUTE UNCOMPLICATED PROBLEM, 2 OR MORE MINOR PROBLEMS, OR 1 STABLE CHRONIC PROBLEM, THAT POSE(S) A LOW RISK FOR MORBIDITY/MORTALITY. The visit on the day of the encounter encompassed interpreting the data and educating the patient as to the nature of their condition, treatment options available according to their individual PMH, meds, allergies, and overall health/living conditions, as well as any potential risks or complications that may occur from a failure to adhere to, and participate in, the recommended course of therapy. The discussion included a complete verbal, and/or written explanation of the examination results, any x-rays taken, the proposed diagnosis, and outline of the treatment plan. A schedule for future care needs was also explained. The patient verbalized an understanding of the instructions at this time and agreed to be an active participant in their treatment. If the patient should think of any questions or concerns after the visit, I have encouraged the patient to call the office.?Metatarsalgea:?I explained to the patient the possible etiologies of their Metatarsalgea Foot pain, including foot type/shoegear/activity level/exercise routine and the risks/benefits of all the different treatment options for pain including: No treatment at all, Rest, Ice, NSAIDs(only if well tolerated after meals), New/supportive Shoegear, Strappings and Tapings, Foot/Ankle AFO Bracing, Stretching exercises, Deep Tissue Massage, Arch support/shoe inserts, Custom orthoses, Topical analgesics including Aspercream/Voltaren gel, Physical Therapy, Cortisone injection therapy, EPAT/ESWT. Advantages and disadvantages of each option were discussed and the patients questions re: shoegear, custom vs prefabricated inserts, activity level, PO vs Topical medications (and their respective potential complications/drug interactions/side effects), and consistency in home treatment regimens for optimal success were answered to their verbally confirmed satisfaction.?Orthotics:?I explained to the patient the benefits of OT use. I explained that orthoses are medically necessary to decrease the foot pain through proper mechanical control, support of their foot, cushion the forefoot by supplementing the soft tissue, possibly delay of the progression of the Tailor bunion deformity, possibly prevent surgery.?P.R.I.C.E.:?The patient was counseled on the use of P.R.I.C.E. and NSAIDS (if well tolerated) to aid in the recovery from their painful condition.?Podiatric Surgery Counseling:?Surgical procedures to treat the patients foot problem were discussed. We reviewed the risks of the procedure (described below) vs not having the procedure (persistent pain, deformity, risk for skin ulceration/infection, loss of toe). We discussed the potential procedure complications including, but not limited to: pain, swelling, bleeding, scarring, numbness, infection, delayed/non healing, floppy/unstable/shorthened toe, recurrence, failure of the procedure, overcorrection leading to plantarflexed/downward positioned toe, recurrence, need for further surgery, as well as the possibility for loss of the toe itself. We discussed the use of IV/Local anesthesia, and the usual post-op course for healing. No guarentees were given. The patient verbally indicated a full understanding of the above conversation, and any other of their questions were answered to their satisfaction.?Shoe Gear Counseling:?The patient and I reviewed the types of shoes they should be wearing. My recommendation included obtaining a well-fitted shoe with a good supportive, non-foldable nor twistable sole, plenty of toe/room for the forefoot, and proper arch support. Based on todays examination, I recommended the patient look for new shoes, by having their feet professionally measured. We discussed that generally the best time of the day for a shoe fitting is the afternoon. Different shoes types and brands to best match the patients occupation and vocation were discussed. Specific brand selection will be up to the patient, their individual foot condition/deformities, and fit. The patient and I reviewed the standard new shoe break in period by wearing them for a few hours a day while checking for redness or sores as wear time is increased. The patient verbally confirmed to understanding the information discussed.? * Follow Up:?prn * Images: * Sign off status: Completed true * Provider:?Javier Donaldson DPM Date:?2023 Generated for Ryley armstrong/Onel/eTransmitting on:?03/31/2024 08:02 AM EST History and Physical Notes * HPI (History of Present Illness) Category Sub-Category Detail Notes Category Not es Skin problems Pt States PCP Visit: DATE: 04/17/2023 Foot Pain Location: Outside, Bottom, Forefoot, L EFT Duration: several weeks Course: worse Aggravated: any pressure, standi ng, walking Treatments: rest/alter normal da dottie activity Examination Category Sub-Category Detail Notes Category Not es Neuroma Pain PALPATION: No interspace pain noted on palpation Neurological SENSORY: Neurological exa m reveals intact sensorium, pain sensation normal, vibration sensation intact, pinprick sensation is normal in the lower extremities, Pt denies, anesthesia, burning, paresthesia, tingling, B/L TINEL'S COMPRESSION: Negative, Lateral s ural nerve distribution, Left DEEP TENDON REFLEXES: Achilles, 2/4, B/L Dermatologic SKIN FINDINGS: Skin exam reveal s normal texture, elasticity, and turgor. There are no masses. The interspaces are clear VERRUCA: Reveals Multiple ( 3 ), multi-loculated , mosaic-patterned, round, raised, flat-topped, petechial bleeding papule(s), with cauliflower appearance and interruption of skin lines, with pain to lateral compression, and size estimated at 2-5 mm diameter , plantar Forefoot , LEFT , plantar Heel , B/L Orthopedic TAILOR'S BUNION: Prominent, pain ful, with inflammation present, 5th MTH/MPJ, LEFT MUSCLE STRENGTH: 5/5 all groups in a symmetrical fashion , B/L General Examination GENERAL APPEARANCE: Reveals a pleasant, alert, well- nourished, well-developed, well hydrated individual, who demonstrates proper attention to hygiene/body habitus, and is in no acute distress, Pt serves as own historian for office visit today ORIENTED: person, place, and t ellyn Vascular DP PULSES(B): 2/4, B/L PT PULSES(B): 2/4, B/L CAPILLARY FILL TIME: immediate, all digi ts, B/L TEMPERTURE GRADIENT(C): warm to cool, pr oximal to distal, B/L TROPHIC CONDITION-TEXTURE/ELASTICITY/TURGOR/HAIR GROWTH(B): normal, B/L EDEMA(C): absent, B/L PIGMENTATION: normal, B/L
--- OUTSIDE RECORDS SUMMARY | 2024-03-31 08:02 | XMS_ITS ---
Author Organization [facility] Address [address] [place] [address] Care Team Providers Care Fleet Administrator Name Role Phone Collin GONGORA, Valentine Nguyen Primary Care Provider Un available Javier Donaldson Unavailable [phone] REASON FOR VISIT PROFESSIONAL SPORTS SCOUT Encounters Encounter Location Date Provider Diagnosis [facility] [address] [place] [address] 10/04/2023 Javier Donaldson Plan Of Treatment No Information Progress Notes * Johan LO MDOB:[birth year] (68 yo M)Acc No.[id number]:10/04/2023 Patient:?Johan Lo :1955???Age:68 Y???Sex:Male Address:[facility] [address] , [place], [address] * true * Date:? Generated for Printi ng/Facorbyg/eTransmitting on:?03/31/2024 08:02 AM EST
--- OUTSIDE RECORDS SUMMARY | 2024-03-31 08:02 | XMS_ITS ---
Author Organization [facility] Address [address] [place] [address] Care Team Providers Care Porcelain Slusher Name Role Phone Collin GONGORA, Valentine Nguyen Primary Care Provider Un available Javier Donaldson Unavailable [phone] REASON FOR VISIT BUY Wart Stick Encounters Encounter Location Date Provider Diagnosis [facility] [address] [place] [address] 01/11/2024 Javier Donaldson Plan Of Treatment No Information Progress Notes * Johan LO MDOB:[birth year] (69 yo M)Acc No.[id number]:01/11/2024 Patient:?Johan Lo :1955???Age:69 Y???Sex:Male Address:[address] [place] [address], [facility] [place], [address] * true * Date:? Generated for Printi nathaniel/Onel/eTransmitting on:?03/31/2024 08:01 AM EST
--- OUTSIDE RECORDS SUMMARY | 2024-03-31 08:02 | XMS_ITS | Patient Health Record ---
Author Organization [facility] Address [address] [place] [address] Care Team Providers Care Power Distribution Engineer Name Role Phone Collin GONGORA, Valentine Nguyen Primary Care Provider Un available Javier Donaldson Unavailable [phone] Allergies No Known Allergies Reason For Referral No Information Social History Tobacco Use: Social History Observation [...] W/U Status Risk Notes Problem Plantar wart ([id number]) Plantar wart (B07.0) Active confirmed Vital Signs Height 5 ft 9 in in 01/11/2024 Weight 143 lbs lbs 01/11/2024 BMI 21.12 kg/m2 01/11/2024 Procedures Procedure Date Ordered Date Performed Result Body Sit e 92242-[id number] Destruction, 1-14 01/11/2024 N/A Encounters Encounter Location Date Provider Diagnosis [facility] [address] [place] [address] 01/11/2024 Javier Donaldson Right foot pain M79.671 ; Plantar wart B07.0 ; Left foot pain M79.672 ; Pain in left foot M79.672 ; Pain in left ankle and joints of left foot M25.572 ; Bursitis of left foot M77.52 and Tailor's bunion of left foot M21.622 [facility] [address] [address] 10/04/2023 Javier Donaldson [facility] [address] [address] 01/11/2024 Javier Donaldson Assessments Encounter Date Diagnosis (ICD Code) Assessment Notes Treatment Notes Treatment Clinical Notes Section Notes 01/11/2024 Plantar wart (ICD-10 - B07.0) 01/11/2024 Right foot pain (ICD-10 - M79.671) 01/11/2024 Left foot pain (ICD-10 - M79.672) 01/11/2024 Pain in left foot (ICD-10 - M79.672) 01/11/2024 Pain in left ankle and joints of left foot (ICD-10 - M25.572) 01/11/2024 Bursitis of left foot (ICD-10 - M77.52) 01/11/2024 Tailor's bunion of left foot (ICD-10 - M21.622) Plan Of Treatment Pending Test Test Name Order Date [id number] Destruction04-2901/11/2024 Insurance Providers Payer Name Payer Address Payer Phone Subscriber Number Group Number Insured Name Patient Relationship to Insured Coverage Start Date Coverage End Date [facility] [address] [place] [address] [phone] [id number] Johan Sexton Self - patient is the insured Medical (General) History Medical History History ICD Code covid-19
[2024-03-31 08:06] VITALS: BP 134/60; PULSE 87; O2SAT 100; BMI 21.1
== END 2024-03-31 08:59 | disposition home or self-care (01) ==
PROVIDERS: PCP Internal Medicine; Visit Provider Internal Medicine
DX: Z00.01 Encounter for general adult medical examination with abnormal findings (principal); J43.2 Centrilobular emphysema; F17.210 Nicotine dependence, cigarettes, uncomplicated; F10.90 Alcohol use, unspecified, uncomplicated; N52.9 Male erectile dysfunction, unspecified; H61.23 Impacted cerumen, bilateral

== ENCOUNTER → 2024-03-31 08:00 | Outpatient (BNVA) | payer OTHER, SELFPAY | PROVIDERS: PCP Internal Medicine; Visit Provider Internal Medicine | DX: Z00.01 Encounter for general adult medical examination with abnormal findings (principal); J43.2 Centrilobular emphysema; F10.90 Alcohol use, unspecified, uncomplicated; N52.9 Male erectile dysfunction, unspecified; H61.23 Impacted cerumen, bilateral; F17.210 Nicotine dependence, cigarettes, uncomplicated | CPT/HCPCS: 96127 ==

== ENCOUNTER 2024-04-05 06:40 | Outpatient (REF) | payer OTHER, SELFPAY ==
[2024-04-05 11:10] LABS: MANUAL DIFF FLAG NO
[2024-04-05 11:19] LABS: Basophils Absolute Auto 0.1 X10*3/uL (0.0-0.2); Basophils Percent Auto 0.6 % (0-2); Eosinophils Absolute Auto 0.4 X10*3/uL (0.0-0.4); Eosinophils Percent Auto 5.2 % (0-4); Hematocrit 43.5 % (42.0-52.0); Hemoglobin 14.9 g/dl (14.0-18.0); Imm Gran Abs Auto 0.04 X10*3/uL (0.00-0.03); Imm Gran Pct Auto 0.5 % (0.0-0.4); Lymphocytes Absolute Auto 1.9 X10*3/uL (1.2-4.9); Lymphocytes Percent Auto 24.4 % (20-40); Mean Corpuscular HGB Conc 34.3 g/dl (31.0-36.0); Mean Corpuscular Hemoglobin 33.7 pg (27.0-33.0); Mean Corpuscular Volume 98.4 fL (80.0-98.0); Mean Platelet Volume 9.6 fL (9.4-12.4); Monocytes Absolute Auto 0.8 X10*3/uL (0.1-1.2); Monocytes Percent Auto 10.5 % (2-11); Neutrophils Absolute Auto 4.6 x10*3/uL (2.0-8.3); Neutrophils Percent Auto 58.8 % (45-73); Platelet Count 322 X10*3/uL (160-400); Red Blood Count 4.42 X10*6/uL (4.60-5.80); Red Cell Distribution Width 12.8 % (11.0-16.0); White Blood Count 7.9 X10*3/uL (4.8-10.8)
[2024-04-05 11:35] LABS: Alanine Aminotransferase 18 U/L (0-40); Anion Gap 11 (12-20); Aspartate Amino Transferase 25 U/L (5-37); Blood Urea Nitrogen 20 mg/dL (9-16); Calcium 9.1 mg/dL (8.4-10.2); Carbon Dioxide 28 mmol/L (22-29); Chloride 103 mmol/L (96-108); Cholesterol 206 mg/dL (<200); Estimated Glomerular Filt Rate > 60; Glucose Fasting 95 mg/dL (60-99); HDL Cholesterol 77 mg/dL (>40); LDL Cholesterol Calculated 119 mg/dL (<100); Potassium 5.2 mmol/L (3.3-5.1); Sodium 137 mmol/L (135-145); Triglycerides 52 mg/dL (<150)
[2024-04-05 11:49] LABS: PSA,Total (Free>4and<10) 0.34 ng/mL (0.00-4.00)
[2024-04-05 11:53] LABS: Vitamin D 25-OH Total 49.9 ng/mL (>30)
== END 2024-04-05 06:41 | disposition home or self-care (01) ==
LOC: HO.HMGCLDS 06:40
PROVIDERS: PCP Internal Medicine; Visit Provider Internal Medicine
DX: Z00.01 Encounter for general adult medical examination with abnormal findings (principal); F17.210 Nicotine dependence, cigarettes, uncomplicated; H61.23 Impacted cerumen, bilateral; E55.9 Vitamin D deficiency, unspecified; J43.2 Centrilobular emphysema; N52.9 Male erectile dysfunction, unspecified; Z12.5 Encounter for screening for malignant neoplasm of prostate
CPT/HCPCS: 36415; 80048; 80061; 82306; 84153; 84450; 84460; 85025

== ENCOUNTER 2024-07-28 10:40 | Outpatient (AMB) | payer OTHER, SELFPAY ==
--- NOTE | 2024-07-28 11:26 | MHC.PC.OV ---
Vital Signs 07/28/24 11:41 Height 5 ft 9 in Weight 149 lb BMI 22.0 BP 140/60 H Blood Pressure Location Lt brachial Position Sitting Respiration 16 Pulse 78 Pulse Source Pulse Oximeter Temp 98 F Temp Source Oral Pulse Oximetry (%) 96 Oxygen Delivery Method Room Air Intake Visit Reasons: Lt eye cataract 07/30/Rt eye 08/25 Dr. Barrera Intake Note: Pt is here today for his pre-op Lt eye cataract 07/30/ & Rt eye 08/25 Dr. Barrera Allergies No Known Allergies [No Known Allergies*] Allergy (Verified 07/29/24 01:45) Medication List - Last Reconciled 07/29/24 by Valentine Polanco MD budesonide-formoterol 160-4.5 mcg/actuation (Symbicort) 2 puffs inhalation Q12H 30 days sildenafil 100 mg PO DAILY PRN Tobacco use date assessed: 07/28/24 Fall risk assessment: No Falls in past year Last assessed Fall Risk: 07/28/24 Dental Screening Dental Screen Date: 07/28/24 Did you have a dental visit in the last 12 months?: Yes Did you have a dental problem in the last 6 months where you did not have access to dental care?: No Was dental information given to patient?: Patient has dentist HPI Lt eye cataract 07/30/Rt eye 08/25 Dr. Barrera HPI Details 69 year old male with history of emphysema, currently on Symbicort. Has quit smoking several months ago, but still having occasional episodes of dry cough, no shortness of breath, chest pain or lightheadedness reported; history of hearing loss and alcoholic use disorder, here today for preoperative examination for cataract surgery. He is scheduled for left eye surgery on 07/30/2024, followed by the right eye cataract surgery scheduled for 08/25/2024, to be done by . He is not on any blood thinners, denies any complaints of headache, no chest pain or shortness of breath, no lightheadedness, no abnormal bleeding tenderness reported. [facility] Medical History (Updated 07/28/24 @ 11:58 by Valentine Polanco MD) Former cigarette smoker Preoperative examination Alcohol use disorder Emphysema lung Nicotine dependence, cigarettes, uncomplicated Vitamin D deficiency Erectile dysfunction Surgical History History of rotator cuff surgery Family History Father ETOH abuse Myocardial infarction CVD (cardiovascular disease) Mother Stomach cancer Sister Diabetes mellitus Sister Diabetes mellitus Sister Breast cancer CAD (coronary artery disease) Brother CVD (cardiovascular disease) Myocardial infarction Cancer Daughter Substance use disorder Social History (Updated 07/29/24 @ 01:50 by Valentine Polanco MD) Housing: House Alcohol intake: current Alcohol intake frequency: 3 or more drinks per day Alcohol type: beer Patient Tobacco Use Status: Former Tobacco user Cigarette Packs Per Day: 1 Cigarettes Per Day: 20.0 e-Cigarette/Vaping Use: Never Used Second Hand Smoke Exposure: No service: No Current occupational status: employed 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 Milad Celaya, Nidia Taylor, Mauro Frost and colleagues, with an educational blayne from [employer]. Review of Systems Const Denies body aches, Denies fatigue, Denies fever(s), Denies headache(s) and Denies weakness Eyes Reports requires corrective lenses ENT Details: Bilateral impacted cerumen Reports Normal hearing present, Denies dizziness, Denies headache(s), Denies nasal congestion, Denies nasal discharge and Denies sore throat Card Denies chest pain, Denies lightheadedness, Denies palpitations and Denies dyspnea Resp Denies chest congestion, Denies dyspnea and Denies wheezing GI Denies abdominal pain, Denies melena, Denies hematochezia, Denies change in bowel habits and Denies heartburn Musc Reports stiffness Skin/Breast Denies lesions and Denies rash Neuro Reports Normal hearing present, Denies dizziness, Denies headache(s), Denies Sensory deficit (Neuro) and Denies weakness Psych Reports as per HPI Endo Denies fatigue, Denies polydipsia, Denies polyuria and Denies palpitations Julio/Lymph Denies easy bruising Aller/Immun Denies seasonal rhinorrhea and Denies wheezing Physical exam (Primary Care) Vital Signs: Last Vital Signs Temp 98 F 07/28/24 11:41 Pulse 78 07/28/24 11:41 Resp 16 07/28/24 11:41 BP 140/60 H 07/28/24 11:41 Pulse Ox 96 07/28/24 11:41 Oxygen Delivery Method Room Air 07/28/24 11:41 BMI result Body Mass Index 22.0 Tobacco/Smoking Status: Tobacco use Status Tobacco use date assessed 07/28/24 07/28/24 11:28 Patient Tobacco Use Status Former Tobacco user 07/28/24 11:44 e-Cigarette/Vaping Use Never Used 07/28/24 11:28 Thrive Assessment: Date of Thrive Assessment Date Thrive assessed 03/31/24 07/28/24 11:28 Const General: no acute distress and alert Orientation/consciousness: patient oriented x3 HENMT Head: Yes normocephalic Ears: external ears normal General nose exam: Normal external nose present Face and sinus: Yes face symmetric Mouth: oropharynx normal and moist mucous membranes Eyes Conjunctivae: conjunctivae normal Sclerae: sclerae normal Pupils: Equal, round and reactive pupils present EOM: EOMs intact bilaterally Neck Neck: Yes full ROM and Yes no lymphadenopathy Thyroid: Thyroid normal Resp Effort & Inspection: normal respiratory effort and able to speak in complete sentences Auscultation: diminished lung sounds bilateral Cardio Jugular venous distension: no JVD Rate: regular rate Rhythm: regular rhythm Heart sounds: S1 normal heart sound present and S2 normal heart sound present GI Inspection: Yes normal to inspection Palpation (GI): Soft to palpation Auscultation: normal bowel sounds Skin General skin exam: no rashes or lesions noted Neuro General: patient oriented x3, gait normal, moves all extremities, no focal motor deficits and CN's II-XI intact bilaterally Cranial nerves: Yes Equal, round and reactive pupils present and Yes Normal hearing present Cognition (Neuro): normal cognition Gait exam (Neuro): Normal gait present Motor exam (neuro): 5/5 motor strength present throughout Sensory Exam: No Sensory deficit (Neuro) Extrem General: Yes normal to inspection, Yes full ROM, Yes no pedal edema and Yes normal gait Psych Appearance: grossly normal Mental Status: mental status grossly normal Speech and movement: Normal speech and movement present Affect: normal affect Thought process: Normal thought process present Coding Level of Care Code Est Pt Level 4 (61267) Diagnoses Preoperative examination Z01.818 Bilateral impacted cerumen H61.23 Centrilobular emphysema J43.2 Emphysema type: centrilobular Alcohol use disorder F10.90 Assessment & Plan Assessment & Plan (1) Preoperative examination: Code(s): Z01.818 - Encounter for other preprocedural examination Category: Medical Plan: 69-year-old male with history of emphysema currently controlled on Symbicort, stopped smoking several months ago, with history of alcohol use disorder, here today for preoperative exam for cataract surgery, scheduled for 07/30/2024 for the left eye and 08/25/2024 for the right eye, requested by Dr. Barrera. He has no known coronary artery disease, not on any blood thinners. Denies any cardiac or pulmonary symptoms at present. Patient with low cardiac risk index for proposed surgery (2) Bilateral impacted cerumen: Code(s): H61.23 - Impacted cerumen, bilateral Category: Medical Plan: Cerumen successfully removed with lighted curette and saline irrigations from both ear canals, patient tolerated procedure well, (3) Emphysema lung: Code(s): J43.9 - Emphysema, unspecified Category: Medical Qualifiers: Emphysema type: centrilobular Qualified Code(s): J43.2 - Centrilobular emphysema Plan: Has quit smoking several months ago, continued on Symbicort 2 inhalations every 12 hours, rinse mouth after use (4) Alcohol use disorder: Code(s): F10.90 - Alcohol use, unspecified, uncomplicated Category: Medical Plan: Strongly advised to continue cutting back on his alcohol intake, currently drinking 3-6 beers daily, declines attending Alcohol Anonymous or referral to engineering test specialist, denies withdrawal symptoms
[2024-07-28 11:41] VITALS: BP 140/60; PULSE 78; RESP 16; TEMP 36.6; O2SAT 96; BMI 22.0
--- OUTSIDE RECORDS SUMMARY | 2024-07-28 12:21 | XMS_ITS ---
Author Organization [facility] Address [address] [place] [address] Care Team Providers Care Cloth Hauler Name Role Phone Collin GONGORA, Valentine Nguyen Primary Care Provider Un available Javier Donaldson Unavailable [phone] REASON FOR VISIT BUY Wart Stick Encounters Encounter Location Date Provider Diagnosis [facility] [address] [place] [address] 01/11/2024 Javier Donaldson Plan Of Treatment No Information Progress Notes * Johan LO MDOB:[birth year] (69 yo M)Acc No.[id number]:01/11/2024 Patient:?Johan Lo :1955???Age:69 Y???Sex:Male Address:[address] [place] [address] [place], [address] * true * Date:? Generated for Printi ng/Facorbyg/eTransmitting on:?07/28/2024 12:21 PM EDT
--- OUTSIDE RECORDS SUMMARY | 2024-07-28 12:21 | XMS_ITS | Referral Summary ---
Author Organization [facility] Address [address] [place] [address] Care Team Providers Care Financial Institution Vice President Name Role Phone Valentine Polanco MD Primary Care Provider Allergies No known active allergies Medications No known medications Immunizations Immunization Administration Dates Next Due Tetanus Toxoid, Reduced Diph theria Toxoid, and Acellular Pertussis Vaccine, Adsorbed 01/31/2024 Social History Tobacco Use Types Packs/Day Years Used Date Smoking Tobacco: Every Day Cigarettes Smokeless Tobacco: Never Tobacco Cessation:Ready to Q uit: Not Asked; Counseling Given: Not Answered Alcohol Use Standard Drinks/Week Comments Yes 0 (1 standard drink = 0.6 oz pur e alcohol) Sex and Gender Information Value Date Recorded Sex Assigned at Male 01/31/2024 9:28 AM EDT Legal Sex Male 9:23 AM EDT Gender Identity Not on file Sexual Orientation Not on file Last Filed Vital Signs Vital Sign Reading Time Taken Comments Blood Pressure 102/64 02/08/2024 7:17 AM EDT Pulse 68 02/08/2024 7:17 AM EDT Temperature 36.6 ??C (97.8 ??F) 02/08/2024 7:17 AM ED T Respiratory Rate 17 02/08/2024 7:17 AM EDT Oxygen Saturation 97% 02/08/2024 7:17 AM EDT Inhaled Oxygen Concentration - - Weight 66.2 kg (146 lb) 02/08/2024 7:17 AM EDT Height 175.3 cm (5' 9 ) 01/31/2024 9:34 AM EDT Body Mass Index 21.56 01/31/2024 9:34 AM EDT Plan of Treatment [place] [address] [facility] [place] [address] [place] [address] [employer] [place] [address] [place] [address] [place] [address] Care Teams Financial Institution Vice President Relationship Specialty Start Date End Date Valentine Polanco MD [address] [place] [address] PCP - General 01/31/24
--- OUTSIDE RECORDS SUMMARY | 2024-07-28 12:21 | XMS_ITS ---
Author Organization [facility] Address [address] [place] [address] Care Team Providers Care Airfreight Operations Agent Name Role Phone Collin GONGORA, Valentine Nguyen Primary Care Provider Un available Javier Donaldson Unavailable [phone] REASON FOR VISIT TEMPERATURE REGULATOR Encounters Encounter Location Date Provider Diagnosis [facility] [address] [place] [address] 10/04/2023 Javier Donaldson Plan Of Treatment No Information Progress Notes * Johan LO MDOB:[birth year] (68 yo M)Acc No.[id number]:10/04/2023 Patient:?Johan Lo :1955???Age:68 Y???Sex:Male Address:[facility] [address] [place], [address] * true * Date:? Generated for Printi ng/Faxing/eTransmitting on:?07/28/2024 12:21 PM EDT
--- OUTSIDE RECORDS SUMMARY | 2024-07-28 12:21 | XMS_ITS ---
Author Organization [facility] Address [address] [place] [address] Care Team Providers Care Shopper Insights Manager Name Role Phone Collin GONGORA, Valentine Nguyen Primary Care Provider Un available Javier Donaldson Unavailable [phone] Allergies No Known Allergies REASON FOR VISIT [...] W/U Status Risk Notes Problem Plantar wart (58824873) Plantar wart (B07.0) Active confirmed Vital Signs Height 5 ft 9 in in 01/11/2024 Weight 143 lbs lbs 01/11/2024 BMI 21.12 kg/m2 01/11/2024 Procedures Procedure Date Ordered Date Performed Result Body Sit e 44317-Oxqk Destruction, 1-14 01/11/2024 N/A Encounters Encounter Location Date Provider Diagnosis [facility] [address] [place] [address] 01/11/2024 Javier Donaldson Right foot pain M79.671 [...] Treatment Pending Test Test Name Order Date 87769-Dnaq Destruction, -14 01/11/2024 Next Appt Details Follow [...] defers any other forms of tx - 60509 Progress Notes * Johan LO MDOB:[birth year] (69 yo M)Acc No.[id number]:01/11/2024 Progress Notes Patient:?Johan LO Provider:?Javier Donaldson DPM :1955???Age:69 Y???Sex:Male Zach e:01/11/2024 Address:[address] [place] [address], [id number] Pcp:Chika Vogt Subjective: * Chief Complaints: * [...] day. ?Exercise: golf. ?Marital status: . ?Occupation: [employer]. * Medications:?None * Allergies:?N.K.D.A.yes[Aller gies Verified] Objective: [...] office visit today.?ORIENTED:?person, place, and time.?Vascular: ?DP PULSES (B):?2/4, B/L.?PT PULSES (B):?2/4, B/L.?CAPILLARY FILL TIME:?immediate, all digits, B/L.?TROPHIC CONDITION-TEXTURE/ELASTICITY/TURGOR/HAIR GROWTH (B):?normal, B/L.?TEMPERTURE GRADIENT (C):?warm to cool, proximal to distal, B/L.?PIGMENTATION:?normal, B/L.?EDEMA (C):?absent, B/L.? Assessment: * Assessment: 1.?Plantar wart - B07.0 (Grace tyesha)???Specify :B/L???2.?Right foot pain - M79.671???3.?Left foot pain - M79.672???4.?Pain in left foot - M79.672???5.?Pain in left ankle and joints of left foot - M25.572???6.?Bursitis of left foot - M77.52???7.?Tailor's bunion of left foot - M21.622???Specify :Acute problem, Uncomplicated (3)??? Plan: * Treatment: * Procedures:?Wart Treatment:?Procedure?Verrucae were debrided to pin-point bleeding margins with sterile 15 surgical blade, silver nitrate chemocautery applied, recomm. immune-boosting meds such as zinc, recomm. follow up with topical chemosurgical agents, recomm. Wartstick 40 percent Salicylic acid application under occlusion as directed, Pt defers any other forms of tx - 65425.? * Procedure Codes:?46902 Wart Destruction, 1-14 * Preventive Medicine:? ??Counseling:?Discussion:?-03: [...] verbally confirmed to understanding the information discussed.? ??Screening/Special Tests:?Fall Risk?Screening:?No falls in the past year ?FALLS: Screening for Future Fall Risk?Have you had any falls with injury in the past year??No * Follow Up:?prn * Images: * Sign off status: Completed true * Provider:?Javier Donaldson DPM Date:?2023 Generated for Ryley armstrong/Onel/eTransmitting on:?07/28/2024 12:21 PM EDT History and Physical Notes * HPI (History [...] person, place, and t ellyn Vascular DP PULSES (B): 2/4, B/L PT PULSES (B): 2/4, B/L CAPILLARY FILL TIME: immediate, all digi ts, B/L TEMPERTURE GRADIENT (C): warm to cool, p roximal to distal, B/L TROPHIC CONDITION-TEXTURE/ELASTICITY/TURGOR/HAIR GROWTH (B): normal, B/L EDEMA (C): absent, B/L PIGMENTATION: normal, B/L
--- OUTSIDE RECORDS SUMMARY | 2024-07-28 12:21 | XMS_ITS | Patient Health Record ---
Author Organization [facility] Address [address] [place] [address] Care Team Providers Care Meat Lugger Name Role Phone Collin GONGORA, Valentine Nguyen Primary Care Provider Un available Javier Donaldson Unavailable [phone] Allergies No Known Allergies Reason For Referral [...] W/U Status Risk Notes Problem Plantar wart (30534500) Plantar wart (B07.0) Active confirmed Vital Signs Height 5 ft 9 in in 01/11/2024 Weight 143 lbs lbs 01/11/2024 BMI 21.12 kg/m2 01/11/2024 Procedures Procedure Date Ordered Date Performed Result Body Sit e 47086-Smsf Destruction, 1-14 01/11/2024 N/A Encounters Encounter Location Date Provider Diagnosis [facility] [address] [place] [address] 01/11/2024 Javier Donaldson Right foot pain M79.671 ; Plantar wart B07.0 ; Left foot pain M79.672 ; Pain in left foot M79.672 ; Pain in left ankle and joints of left foot M25.572 ; Bursitis of left foot M77.52 and Tailor's bunion of left foot M21.622 [facility] [address] [address] 10/04/2023 Javier Donaldson [facility] [address] [address] 01/11/2024 Javier Donaldson Assessments Encounter Date Diagnosis [...] Treatment Pending Test Test Name Order Date 64670-Ruwx Destruction04-2901/11/2024 Insurance Providers Payer Name Payer Address Payer Phone Subscriber Number Group Number Insured Name Patient Relationship to Insured Coverage Start Date Coverage End Date [facility] [address] [place] [address] [id number] Johan Sexton Self - patient is the insured Medical (General) History Medical History History ICD Code covid-19
--- OUTSIDE RECORDS SUMMARY | 2024-07-28 12:21 | XMS_ITS | Clinical Summary ---
Author Organization [facility] Address [address] [place] [address] Phone Care Team Providers Care Land Leveler Name Role Phone Valentine Polanco MD Primary Care Provider [phone] Allergies No known active allergies Medications umeclidinium-vi lanteroL (ANORO ELLIPTA) 62.5-25 mcg/actuation inhaler Inhale 1 puff by mouth 1 (one) time each day. 1 each 1 06/22/2024 Active dextromethorpha n-guaiFENesin (MUCINEX DM) 30-600 mg per 12 hr tablet Take 1 tablet by mouth every 12 (twelve) hours for 7 days. Do not crush, chew, or split. 14 tablet 06/22/2024 Active Problems Problem Noted Date Diagnosed Date COPD exacerbation ([facility] [place], [facility] V28) 11/2024 Encounters Date Type Department Care Team Description 06/21/2024 9:07 AM EST - 06/22/2024 2:37 PM EDT Hospital Encounter [facility] [address] [place] [address] Abby Gallego DO Flores, Carlos M, MD Kela, Kashyap Devendrabhai, MD Pneumonia of right lower lobe due to infectious organism (Primary Dx); COPD exacerbation ([facility] [place]24, [facility] V28) Discharge Disposition: Home or Self Care from Last 3 Months Medical History Medical History Date Comments COPD exacerbation ([facility] [place]24, [facility] V28) 11/2024 Tobacco abuse Alcohol use Social History Tobacco Use Types Packs/Day Years Used Date Smoking Tobacco: Every Day Cigarettes Tobacco Cessation:Ready to Q uit: Not Asked; Counseling Given: Not Answered Interpersonal Safety Answer Date Record ed Physical Abuse 06/21/2024 Verbal Abuse 06/21/2024 Sex and Gender Information Value Date Recorded Sex Assigned at Not on file Legal Sex Male 7:57 PM EST Gender Identity Not on file Sexual Orientation Not on file Obstetrics History Last Filed Vital Signs Vital Sign Reading Time Taken Comments Blood Pressure 130/48 06/22/2024 8:18 AM EDT Pulse 67 06/22/2024 8:18 AM EDT Temperature 36.5 ??C (97.7 ??F) 06/22/2024 8:18 AM ED T Respiratory Rate 18 06/22/2024 8:18 AM EDT Oxygen Saturation 99% 06/22/2024 8:18 AM EDT Inhaled Oxygen Concentration - - Weight 63.5 kg (139 lb 15.9 oz) 06/21/2024 6:48 PM EST Height 172.7 cm (5' 7.99 ) 06/21/2024 6:48 PM ES T Body Mass Index 21.29 06/21/2024 6:48 PM EST Plan of Treatment Health Maintenance Due Date Last Done Comments RSV Immunization Adult Patients (1 - Risk 60-74 years 1-dose series) 2014 Abdominal Aortic Aneurysm (AAA) Screen 03/18/2022 Cholesterol Screening (Lipid Panel) 03/18/2022 Colorectal Cancer Screening: Colonoscopy 03/18/2022 Depression Screening 03/18/2022 Hepatitis C Screening 03/18/2022 Social Influencers of Health Screening 03/18/2022 COVID-19 Vaccine ( season) 2023 02/26/2023, 03/06/2022, 03/14/2021, Additional history exists Influenza Vaccine (Season Ended) 2024 02/26/2023, 03/06/2022, 01/28/2020, Additional history exists Falls Risk Assessment 06/22/2025 06/22/2024 DTaP,Tdap,and Td Vaccines (2 - Td or Tdap) 01/30/2034 01/31/2024 Zoster Vaccines Completed 11/13/2020, 09/07/2020 Pneumococcal Vaccine: 50+ Years Completed 03/23/2023, 03/14/2021, 10/29/2014 HIB Vaccines Aged Out No longer eligi ble based on patient's age to complete this topic HPV Vaccines Aged Out No longer eligi ble based on patient's age to complete this topic Hepatitis A Vaccines Aged Out No long er eligible based on patient's age to complete this topic Hepatitis B Vaccines Aged Out No long er eligible based on patient's age to complete this topic IPV Vaccines Aged Out No longer eligi ble based on patient's age to complete this topic MMR Vaccines Aged Out No longer eligi ble based on patient's age to complete this topic Meningococcal ACWY Vaccine Aged Out N o longer eligible based on patient's age to complete this topic Meningococcal B Vaccine Aged Out No l onger eligible based on patient's age to complete this topic RSV Immunization Patients Under 20 months Aged Out No longer eligible based on patient's age to complete this topic Varicella Vaccines Aged Out No longer eligible based on patient's age to complete this topic Procedures Procedure Name Priority Date/Time Associated Diagnosis Comments ECG ANNOTATED 06/23/2024 CBC WITH AUTO DIFFERENTIAL Routine 06/22/2024 6:36 AM EDT STREPTOCOCCUS PNEUMONIAE ANTIBODIES, IGG, 23 SEROTYPES Routine 06/22/2024 6:36 AM EDT CBC AND DIFFERENTIAL Routine 06/22/2024 6:36 AM EDT MAGNESIUM Routine 06/22/2024 6:36 AM EDT BASIC METABOLIC PANEL Routine 06/22/2024 6:36 AM EDT DYE URINE CULTURE TUBE Routine 06/21/2024 5:48 PM EST URINALYSIS WITH REFLEX MICROSCOPIC AND CULTURE Routine 06/21/2024 5:48 PM EST URINALYSIS WITH REFLEX MICROSCOPIC AND CULTURE Routine 06/21/2024 5:48 PM EST PEP THERAPY Routine 06/21/2024 4:26 PM EST CULTURE THROAT STAT 06/21/2024 4:15 PM EST RAPID STREP A SCREEN STAT 06/21/2024 4:15 PM EST RESPIRATORY VIRUS PANEL MOLECULAR STUDY STAT 06/21/2024 4:15 PM EST TROPONIN I HIGH SENSITIVITY STAT 06/21/2024 2:19 PM EST XR CHEST 2 VIEWS STAT 06/21/2024 9:20 AM EST [id number], RSV, FLU A AND B QUALITATIVE RT-PCR, INTERNAL LAB STAT 06/21/2024 9:14 AM EST ETHANOL STAT Add-on 06/21/2024 9:03 AM EST MAGNESIUM STAT Add-on 06/21/2024 9:03 AM EST PROCALCITONIN STAT Add-on 06/21/2024 9:03 AM EST CBC WITH AUTO DIFFERENTIAL STAT 06/21/2024 9:03 AM EST TROPONIN I HIGH SENSITIVITY STAT 06/21/2024 9:03 AM EST B-TYPE NATRIURETIC PEPTIDE STAT 06/21/2024 9:03 AM EST BASIC METABOLIC PANEL STAT 06/21/2024 9:03 AM EST CBC AND DIFFERENTIAL STAT 06/21/2024 9:03 AM EST ECG 12-LEAD STAT 06/21/2024 8:53 AM EST from Last 3 Months Results * ECG-Annotated (06/23/2024) us Provider Onbase MD ECG ORDERABLES Final Result * Streptococcus pneumoniae antibodies, IgG, 23 serotypes (06/22/2024 6:36 AM EDT) [facility] Serotype 1 (1) 0.6 >=1.0 mcg/mL 06/30/2024 12:09 PM EDT [facility] Serotype 2 (2) 1.6 >=1.0 mcg/mL 06/30/2024 12:09 PM EDT [facility] Serotype 3 (3) 1.1 >=1.0 mcg/mL 06/30/2024 12:09 PM EDT [facility] Serotype 4 (4) 0.6 >=1.0 mcg/mL 06/30/2024 12:09 PM EDT [facility] Serotype 5 (5) 4.7 >=1.0 mcg/mL 06/30/2024 12:09 PM EDT [facility] Serotype 8 (8) 4.9 >=1.0 mcg/mL 06/30/2024 12:09 PM EDT [facility] Serotype 9 (9N) 1.0 >=1.0 mcg/mL 06/30/2024 12:09 PM EDT [facility] Serotype 12F (12) 1.2 >=1.0 mcg/mL 06/30/2024 12:09 PM EDT [facility] Serotype 14 (14) 30.2 >=1.0 mcg/mL 06/30/2024 12:09 PM EDT [facility] Serotype 17 (17F) 2.9 >=1.0 mcg/mL 06/30/2024 12:09 PM EDT [facility] Serotype 19 (19F) 3.8 >=1.0 mcg/mL 06/30/2024 12:09 PM EDT [facility] Serotype 20 (20) 3.9 >=1.0 mcg/mL 06/30/2024 12:09 PM EDT [facility] Serotype 22F (22) 2.3 >=1.0 mcg/mL 06/30/2024 12:09 PM EDT [facility] Serotype 23 (23F) 1.4 >=1.0 mcg/mL 06/30/2024 12:09 PM EDT [facility] Serotype 6B 1.8 >=1.0 mcg/mL 06/30/2024 12:09 PM EDT [facility] Serotype 10A 3.1 >=1.0 mcg/mL 06/30/2024 12:09 PM EDT [facility] Serotype 11A 1.1 >=1.0 mcg/mL 06/30/2024 12:09 PM EDT [facility] Serotype 7F 8.5 >=1.0 mcg/mL 06/30/2024 12:09 PM EDT [facility] Serotype 15B 4.7 >=1.0 mcg/mL 06/30/2024 12:09 PM EDT [facility] Serotype 18C 1.7 >=1.0 mcg/mL 06/30/2024 12:09 PM EDT [facility] Serotype 19A SEE BELOW >=1.0 mcg/mL 06/30/2024 12:09 PM EDT [facility] Comment:RESULT: Unable to pe rform test due to a reagent issue. Serotype 9V 3.3 >=1.0 mcg/mL 06/30/2024 12:09 PM EDT [facility] Serotype 33F 23.0 >=1.0 mcg/mL 06/30/2024 12:09 PM EDT [facility] Interpretation SEE BELOW 06/30/2024 12:09 PM EDT [facility] Comment: Overall interpretation of pneumococcal antibody serology panel can be based on the reported 22 serotypes. Evaluation of the immune response following pneumococcal vaccination can be assessed by measuring serotype-specific Streptococcus pneumonia IgG antibodies. Either of the following conditions is consistent with a normal response to Streptococcus pneumonia vaccination: 1. When comparing pre and post-vaccination samples, antibody concentrations increased by at least 2-fold for either >50% of serotypes in children <6 years of age or >70% of serotypes for individuals >6 years of age. 2. In either a pre- or post-vaccination sample, antibody concentrations >=1.0 mcg/mL for either >50% of serotypes for children <6 years of age or >70% of serotypes for individuals >6 years of age. Results >=1.0 mcg/mL or those showing a >=2-fold change are consistent with an immune response, but are not necessarily sufficient to provide protection against infection. ADDITIONAL INFORMATION This test was developed and its performance characteristics determined by [facility] in a manner consistent with CLIA requirements. This test has not been cleared or approved by the U.S. Food and Drug Administration. Test Performed by: [facility] [address] [place] [address] Postmaster Relief: Brody Riojas Ph.D.; CLIA# [id number] Blood Venous blood specimen / Unknown Venipuncture / Unknown 06/22/2024 6:36 AM EDT 06/22/2024 7:32 AM EDT Kemi Caraballo [employer] LAB BLOOD ORDERABLES Fin al Result [facility] [address] [place] [address] * (ABNORMAL) CBC auto differential (06/22/2024 6:36 AM EDT) Only the most recent of2 resultswithin the time period is included. WBC 11.8(H) 4.8 - 10.8 K/mcL LAB HEMETOLOGY [facility] RBC 3.50(L) 4.50 - 5.50 M/mcL LAB HEMETOLOGY METHOD 06/22/2024 8:07 AM [facility] Hemoglobin 11.2(L) 13.5 - 17.5 g/dL LAB HEMETOLOGY METHOD 06/22/2024 8:07 AM [facility] Hematocrit 33.9(L) 42.0 - 54.0 % LAB HEMETOLOGY METHOD 06/22/2024 8[facility] MCV 98.0 79.0 - 98.0 FL LAB HEMETOLOGY METHOD 06/22/2024 8:[facility] MCH 32.4(H) 27.0 - 32.0 pcg LAB HEMETOLOGY METHOD 06/22/2024 8:07 [facility] MCHC 33.0 32.0 - 37.0 g/dL LAB HEMETOLOGY METHOD 06/22/2024 8:07 AM [facility] RDW 13.0 11.0 - 15.0 % LAB HEMETOLOGY METHOD 06/22/2024 8:07 AM [facility] Platelets 243 130 - 400 K/mcL LAB HEMETOLOGY METHOD 06/22/2024 8:07 AM [facility] MPV 9.7 7.0 - 11.0 FL LAB HEMETOLOGY METHOD 06/22/2024 8:07 AM [facility] NRBC 0.0 <1.0 % LAB HEMETOLOGY METHOD 06/22/2024 8:07 AM [facility] NRBC Absolute 0.00 <0.10 K/mcL LAB HEMETOLOGY METHOD 06/22/2024 8:07 AM [facility] Neutrophils Relative 79.2 % LAB HEMETOLOGY METHOD 06/22/2024 8:07 AM [facility] Lymphocytes Relative 10.6 % LAB HEMETOLOGY METHOD 06/22/2024 8:07 AM [facility] Monocytes Relative 9.0 % LAB HEMETOLOGY METHOD 06/22/2024 8:07 AM [facility] Eosinophils Relative 0.2 % LAB HEMETOLOGY METHOD 06/22/2024 8:07 AM [facility] Basophils Relative 0.2 % LAB HEMETOLOGY METHOD 06/22/2024 8:07 AM [facility] Immature Granulocytes Relative 0.8 % LAB HEMETOLOGY METHOD 06/22/2024 8:07 AM [facility] Neutrophils Absolute 9.38(H) 1.50 - 7.00 K/mcL LAB HEMETOLOGY METHOD 06/22/2024 8:07 AM [facility] Lymphocytes Absolute 1.25 1.00 - 5.00 K/mcL LAB HEMETOLOGY METHOD 06/22/2024 8:07 AM EDT [facility] Monocytes Absolute 1.07(H) 0.20 - 1.00 K/mcL LAB HEMETOLOGY METHOD 06/22/2024 8:07 AM EDT [facility] Eosinophils Absolute 0.02 0.00 - 0.50 K/mcL LAB HEMETOLOGY METHOD 06/22/2024 8:07 AM EDT [facility] Basophils Absolute 0.02 0.00 - 0.20 K/[facility] LAB HEMETOLOGY METHOD 06/22/2024 8:07 AM EDT [facility] Immature Granulocytes Absolute 0.10(H) 0.00 - 0.03 K/[facility] LAB HEMETOLOGY METHOD 06/22/2024 8:07 AM EDT [facility] Blood Venous blood specimen / Unknown Venipuncture / Unknown 06/22/2024 6:36 AM EDT 06/22/2024 7:32 AM EDT us Lalito Goff MD LAB BLOOD ORDERABLES Final Re sult [facility] [address] [place] [address], [place] [phone] * Magnesium (06/22/2024 6:36 AM EDT) Only the most recent of2 resultswithin the time period is included. Magnesium 2.5 1.9 - 2.6 mg/dL LAB CHEMISTRY METHOD 06/22/2024 8:12 AM EDT [facility] Blood Venous blood specimen / Unknown Venipuncture / Unknown 06/22/2024 6:36 AM EDT 06/22/2024 7:32 AM EDT us Lalito Goff MD LAB BLOOD ORDERABLES Final Re sult [facility] [address] [place] [address], * (ABNORMAL) Basic metabolic panel (06/22/2024 6:36 AM EDT) Only the most recent of2 resultswithin the time period is included. Sodium 134 133 - 145 mmol/L LAB CHEMISTRY METHOD 06/22/2024 8:12 AM [facility] Potassium 4.5 3.5 - 5.5 mmol/L LAB CHEMISTRY METHOD 06/22/2024 8:12 AM [facility] Chloride 100 96 - 110 mmol/L LAB CHEMISTRY METHOD 06/22/2024 8:12 AM [facility] CO2 27 21 - 32 mmol/L LAB CHEMISTRY METHOD 06/22/2024 8:12 AM [facility] Anion Gap 7 3 - 11 LAB CHEMISTRY METHOD 06/22/2024 8:12 AM [facility] Glucose 110(H) 70 - 100 mg/dL LAB CHEMISTRY METHOD 06/22/2024 8:12 AM [facility] BUN 16 5 - 25 mg/dL LAB CHEMISTRY METHOD 06/22/2024 8:12 AM [facility] Creatinine 0.74 0.70 - 1.30 mg/dL LAB CHEMISTRY METHOD 06/22/2024 8:12 AM [facility] eGFR 97 >=60 mL/min/1. 73m2 LAB CHEMISTRY METHOD 06/22/2024 8:12 AM [facility] Comment:Calculation based on the??Chronic Kidney Disease Epidemiology Collaboration (CKD-EPI) equation refit??without adjustment for race. BUN/Creatinine Ratio 21.6 LAB CHEMISTRY METHOD 06/22/2024 8:12 AM [facility] Calcium 8.6 8.5 - 10.5 mg/dL LAB CHEMISTRY METHOD 06/22/2024 8:12 AM [facility] Blood Venous blood specimen / Unknown Venipuncture / Unknown 06/22/2024 6:36 AM EDT 06/22/2024 7:32 AM EDT us Lalito Goff MD LAB BLOOD ORDERABLES Final Re sult [facility] [address] [place] [address], * (ABNORMAL) Urinalysis with reflex microscopic and culture (06/21/2024 5:48 PM EST) Specific Ericson Urine 1.018 1.003 - 1.030 LAB URINALYSIS - AUTOMATED METHOD 06/21/2024 6:14 PM [facility] pH, Urine 6.0 5.0 - 8.0 pH LAB URINALYSIS - AUTOMATED METHOD 06/21/2024 6:14 PM [facility] Leukocytes, Urine Negative Negative LAB URINALYSIS - AUTOMATED METHOD 06/21/2024 6:14 PM [facility] Nitrite, Urine Negative Negative LAB URINALYSIS - AUTOMATED METHOD 06/21/2024 6:14 PM [facility] Protein, Urine Trace <=Trace mg/dL LAB URINALYSIS - AUTOMATED METHOD 06/21/2024 6:14 PM [facility] Glucose, Urine 250(A) Negative mg/dL LAB URINALYSIS - AUTOMATED METHOD 06/21/2024 6:14 PM [facility] Ketones, Urine Negative Negative mg/dL LAB URINALYSIS - AUTOMATED METHOD 06/21/2024 6:14 PM [facility] Urobilinogen, Urine 0.2 0.2 - 1.0 mg/dL LAB URINALYSIS - AUTOMATED METHOD 06/21/2024 6:14 PM [facility] Bilirubin, Urine Negative Negative LAB URINALYSIS - AUTOMATED METHOD 06/21/2024 6:14 PM EST [facility] Blood, Urine Negative Negative LAB URINALYSIS - AUTOMATED METHOD 06/21/2024 6:14 PM [facility] Urine Urine specimen obtained by clean catch procedure / Unknown Non-blood Collection / Unknown 06/21/2024 5:48 PM EST 06/21/2024 6:06 PM EST Kemi Caraballo [employer] LAB URINE ORDERABLES Fin al Result Performing Organization Address City/[facility]/ZIP Co de Phone Number [facility] [address] [place] [address], [place] [phone] * Dye urine culture tube (06/21/2024 5:48 PM EST) Pathologist [facility] Extra Tube Hold for add-ons. 06/21/2024 8:01 PM [facility] Comment:Auto resulted. Urine Urine specimen obtained by clean catch procedure / Unknown Non-blood Collection / Unknown 06/21/2024 5:48 PM EST 06/21/2024 6:06 PM EST Kemi Caraballo [employer] LAB URINE ORDERABLES Fin al Result Performing Organization Address [facility]/ZIP Co de Phone Number [facility] [address] [place] [address], [place] [phone] * Respiratory virus panel molecular study (06/21/2024 4:15 PM EST) Pathologist [facility] Adenovirus Detection by PCR Not Detected Not Detected LAB MICROBIOLOGY METHOD 06/21/2024 7:23 PM [facility] Influenza A PCR Not Detected Not Detected LAB MICROBIOLOGY METHOD 06/21/2024 7:23 PM [facility] Influenza B PCR Not Detected Not Detected LAB MICROBIOLOGY METHOD 06/21/2024 7:23 PM [facility] Coronavirus 229E Not Detected Not Detected LAB MICROBIOLOGY METHOD 06/21/2024 7:23 PM [facility] Coronavirus HKU1 Not Detected Not Detected LAB MICROBIOLOGY METHOD 06/21/2024 7:23 PM [facility] Coronavirus OC43 Not Detected Not Detected LAB MICROBIOLOGY METHOD 06/21/2024 7:23 PM [facility] Coronavirus NL63 Not Detected Not Detected LAB MICROBIOLOGY METHOD 06/21/2024 7:23 PM [facility] Parainfluenza Virus 1 Not Detected Not Detected LAB MICROBIOLOGY METHOD 06/21/2024 7:23 PM [facility] Parainfluenza Virus 2 Not Detected Not Detected LAB MICROBIOLOGY METHOD 06/21/2024 7:23 PM [facility] Parainfluenza Virus 3 Not Detected Not Detected LAB MICROBIOLOGY METHOD 06/21/2024 7:23 PM [facility] Parainfluenza Virus 4 Not Detected Not Detected LAB MICROBIOLOGY METHOD 06/21/2024 7:23 PM [facility] RSV PCR Not Detected Not Detected LAB MICROBIOLOGY METHOD 06/21/2024 7:23 PM [facility] Human Metapneumovirus A and B Not Detected Not Detected LAB MICROBIOLOGY METHOD 06/21/2024 7:23 PM [facility] Rhinovirus/Entero virus Not Detected Not Detected LAB MICROBIOLOGY METHOD 06/21/2024 7:23 PM [facility] Bordetella pertussis Not Detected Not Detected LAB MICROBIOLOGY METHOD 06/21/2024 7:23 PM [facility] Bordetella parapertussis Not Detected Not Detected LAB MICROBIOLOGY METHOD 06/21/2024 7:23 PM [facility] Mycoplasma pneumo by PCR Not Detected Not Detected LAB MICROBIOLOGY METHOD 06/21/2024 7:23 PM [facility] Chlamydia pneumoniae Not Detected Not Detected LAB MICROBIOLOGY METHOD 06/21/2024 7:23 PM [facility] SARS COV-2 Not Detected Not Detected LAB MICROBIOLOGY METHOD 06/21/2024 7:23 PM EST [facility] Swab Both anterior nares / Unknown Non-blood Collection / Unknown 06/21/2024 4:15 PM EST 06/21/2024 5:36 PM EST Narrative [facility] - 06/21/2024 7:23 PM EST Testing was performed using the [employer] Respiratory Pathogen PCR Assay. All results must be correlated with the clinical findings. Results should not be used as the sole basis for diagnosis. False Negative results may occur from the presence of sequence variants in the region targeted by the assay or the presence of inhibitors. Results may be affected by concurrent antiviral/antimicrobial therapy or levels of organisms that are below the limit of detection. Keim Caraballo NP LAB MICROBIOLOGY - GENER AL ORDERABLES Final Result Performing Organization Address City/[facility]/ZIP Co de Phone Number [facility] [address] [place] [address], * Rapid strep A screen (06/21/2024 4:15 PM EST) Strep A Ag Negative Negative, Invalid 06/21/2024 6:17 PM EST [facility] Comment:Refer to Throat Cult ure. Swab Structure of anterior portion of neck / Unknown Non-blood Collection / Unknown 06/21/2024 4:15 PM EST 06/21/2024 5:37 PM EST Kemi Caraballo NP LAB MICROBIOLOGY - GENER AL ORDERABLES Final Result [facility] [address] [place] [address], [place] [phone] * Culture throat (06/21/2024 4:15 PM EST) Culture, Throat No pathogens isolated. 06/23/2024 11:59 AM EDT [facility] Swab Structure of anterior portion of neck / Unknown Non-blood Collection / Unknown 06/21/2024 4:15 PM EST 06/21/2024 5:37 PM EST Kemi Caraballo NP LAB MICROBIOLOGY - GENER AL ORDERABLES Final Result Performing Organization Address [facility] Co de Phone Number [facility] [address] [place] [address], [place] [phone] * Troponin I high sensitivity (06/21/2024 2:19 PM EST) Only the most recent of2 resultswithin the time period is included. High Sensitivity Troponin I <3 <=79 ng/L LAB CHEMISTRY METHOD 06/21/2024 2:54 PM EST [facility] Blood Venous blood specimen / Unknown Venipuncture / Unknown 06/21/2024 2:19 PM EST 06/21/2024 2:23 PM EST Narrative [facility] - 06/21/2024 2:54 PM EST High levels of biotin in samples may falsely decrease hsTroponin values. ??Use caution when interpreting hsTroponin results in patients taking biotin who exhibit renal impairment (eGFR <60) or in patients taking more than 20 mg/day of biotin. Abby Gallego DO LAB BLOOD ORDERABLES Shameka l Result Performing Organization Address [facility]/ZIP Co de Phone Number [facility] [address] [place] [address], [place] [phone] * XR Chest 2 Views (06/21/2024 9:20 AM EST) Anatomical Region Laterality Modality Body Radiographic Ana ging 06/21/2024 10:2 2 AM EST Impressions 06/21/2024 10:24 AM EST Hyperinflation. Small opacities in the right infrahilar region could represent some atelectasis. A small area of pneumonia could be present. Recommend optimal medical management and follow-up chest x-ray to confirm resolution. -------- FINAL REPORT -------- Dictated By: Doyle Amin Dictated Date: 06/21/2024 10:22 ET Assigned Physician: Doyle Amin Reviewed and Electronically Signed By: Doyle Amin Signed Date: 06/21/2024 10:24 ET Workstation ID: [id number] Transcribed By: Self Edit Transcribed Date: 06/21/2024 10:22 ET Narrative 06/21/2024 10:24 AM EST EXAMINATION: CHEST CLINICAL INFORMATION: Cough, shortness of breath COMPARISON: Frontal view 05/05/2016 TECHNIQUE: 2 views of the chest FINDINGS: There is mild rotation to the left. There is calcification of the aortic arch. The cardiac size is within normal limits. The central pulmonary vessels are prominent. There are large lung volumes. There is some increased density in the right infrahilar region which appears to represent a change. No definite pleural fluid or pneumothorax. There are osteophytes in the spine. Procedure Note Doyle Amin MD - 06/21/2024 EXAMINATION: CHEST CLINICAL INFORMATION: Cough, shortness of breath COMPARISON: Frontal view 05/05/2016 TECHNIQUE: 2 views of the chest FINDINGS: There is mild rotation to the left. There is calcification of the aorticarch. The cardiac size is within normal limits. The central pulmonaryvessels are prominent. There are large lung volumes. There is some increased density in the rightinfrahilar region which appears to represent a change. No definite pleural fluid or pneumothorax. There are osteophytes in the spine. IMPRESSION: Hyperinflation. Small opacities in the right infrahilar region couldrepresent some atelectasis. A small area of pneumonia could be present.Recommend optimal medical management and follow-up chest x-ray to confirmresolution. -------- FINAL REPORT -------- Dictated By: Doyle Amin Dictated Date: 06/21/2024 10:22 ET Assigned Physician: oDyle Amin Reviewed and Electronically Signed By: Doyle Amin Signed Date: 06/21/2024 10:24 ET Workstation ID: [id number] Transcribed By: Self Edit Transcribed Date: 06/21/2024 10:22 ET Abby Gallego DO IMG XR PROCEDURES Final R esult * [id number], RSV, Influenza A and B qualitative RT-PCR (06/21/2024 9:14 AM EST) Pathologist [facility] Influenza A PCR Not Detected Not Detected LAB MICROBIOLOGY METHOD 06/21/2024 10:30 AM EST [facility] Influenza B PCR Not Detected Not Detected LAB MICROBIOLOGY METHOD 06/21/2024 10:30 AM EST [facility] RSV PCR Not Detected Not Detected LAB MICROBIOLOGY METHOD 06/21/2024 10:30 AM EST [facility] SARS COV-2 Not Detected Not Detected LAB MICROBIOLOGY METHOD 06/21/2024 10:30 AM [facility] Swab Both anterior nares / Unknown Non-blood Collection / Unknown 06/21/2024 9:14 AM EST 06/21/2024 9:38 AM EST [facility] - 06/21/2024 10:30 AM EST Disclaimer: ??Testing was performed using the [employer] GeneXpert Xpress SARS-CoV-2 _Flu_RSV PLUS PCR assay. ??The manner in which this information is used to guide patient care is the responsibility of the healthcare provider. ??Results should be correlated with the clinical history, epidemiological data, and other data available to the clinician evaluating the patient. ??Negative results do not preclude infection. ??This test has been authorized by the FDA under an Emergency Use Authorization (EUA). ??This test is only authorized for the duration of time the declaration that circumstances exist justifying the authorization of the emergency use of in vitro diagnostic tests for detection of SARS-CoV-2 virus and/or diagnosis of COVID-19 infection under section 564 (b) (1) of the Act, 21 U.S.C 360bbb-3 (b) (1), unless the authorization is terminated or revoked sooner. ?? Reference Range: Not Detected Fact sheet for Healthcare providers can be found at https://www.fda.gov/media/913489/download. ?? Fact sheet for Healthcare patients can be found at https://www.fda.gov/media/214522/download. us Josué Alice Bravo DO LAB MICROBIOLOGY - GENERAL ORDERABLES Final Result Performing Organization Address [facility] Co de Phone Number [facility] [address] [place] [address], * Procalcitonin (06/21/2024 9:03 AM EST) Procalcitonin 0.11 <=0.16 ng/mL LAB CHEMISTRY METHOD 06/22/2024 8:38 AM EDT [facility] Blood Venous blood specimen / Unknown Venipuncture / Unknown 06/21/2024 9:03 AM EST 06/21/2024 9:10 AM EST Narrative [facility] - 06/22/2024 8:38 AM EDT Procalcitonin > 2.00 ng/ml: Procalcitonin Levels above 2.00 ng/ml, on the first day of ICU admission represent a high risk for progression to severe sepsis and/or septic shock. Procalcitonin < 0.50 ng/ml: Procalcitonin levels below 0.50 ng/ml on the first day of ICU admission represent a low risk for progression to severe sepsis and/or septic shock. Concentrations <0.5 ng/mL do not exclude an infection, on account of local ized infections (without systemic signs) which can be associated with such low concentrations, or a systemic infection in its initial stages (<6 hours). Furthermore, increased procalcitonin can occur without infection. PCT concentrations between 0.5 and 2.0 ng/mL should be interpreted taking into account the patient's history. It is recommended to retest PCT within 6-24 hours if any concentrations <2.0 ng/mL are obtained. Kemi Caraballo [facility] LAB BLOOD ORDERABLES Fin al Result Performing Organization Address [facility] de Phone Number [facility] [address] [place] [address], * (ABNORMAL) B-type natriuretic peptide (06/21/2024 9:03 AM EST) Pathologist [facility] BNP 108(H) <=100 pcg/mL LAB CHEMISTRY METHOD 06/21/2024 9:52 AM EST [facility] Blood Venous blood specimen / Unknown Venipuncture / Unknown 06/21/2024 9:03 AM EST 06/21/2024 9:10 AM EST Abby Gallego DO LAB BLOOD ORDERABLES Shameka l Result Performing Organization Address [facility] de Phone Number [facility] [address] [place] [address], * Ethanol (06/21/2024 9:03 AM EST) [facility] Ethanol Level <3 0 - 10 mg/dL LAB CHEMISTRY METHOD 06/21/2024 5:10 PM EST [facility] Blood Venous blood specimen / Unknown Venipuncture / Unknown 06/21/2024 9:03 AM EST 06/21/2024 9:10 AM EST Kemi Caraballo NP LAB BLOOD ORDERABLES Fin al Result Performing Organization Address [facility] Co de Phone Number [facility] [address] [place] [address], * ECG 12 lead (06/21/2024 8:53 AM EST) Ventricular Rate ECG 79 BPM GEMUSE Atrial Rate 79 BPM GEMUSE P-R Interval 132 ms GEMUSE QRS Duration 84 ms GEMUSE Q-T Interval 344 ms GEMUSE QTc 394 ms GEMUSE P Wave [place] 84 degrees GEMUSE R [place] 80 degrees GEMUSE T [place] 69 degrees GEMUSE ECG Interpretation Sinus rhythm with Premature atrial complexes Otherwise normal ECG When compared with ECG of 06-MAY-2016 09:49, Premature atrial complexes are now Present Confirmed by JUDE PRYOR ([id number]) on 06/21/2024 12:43:33 PM GEMUSE 06/21/2024 8:53 AM EST 06/21/2024 12:43 PM EST us Abby Gallego DO ECG ORDERABLES Final Res ult GEMUSE from Last 3 Months Insurance MEDICARE [facility] Advance Directives * Full Code - Confirmed (Latest Code Status on File) Date Activated Date Inactivated Comments 06/21/2024 4:40 PM 06/22/2024 4:42 PM This code stat us was ascertained in the following way: Code status discussion: discussion with patient To update the patient's code status, place a code status order. Do not modify or discontinue any currently active code status orders. * Full Code - Default Date Activated Date Inactivated Comments 06/21/2024 1:48 PM 06/21/2024 4:40 PM This is order is used when code status has not been discussed with the patient, or code status is otherwise unknown/unconfirmed To update the patient's code status, place a code status order. Do not modify or discontinue any currently active code status orders. Care Teams Land Leveler Relationship Specialty Start Date End Date Valentine Polanco MD [address] [place] [phone] PCP - General Internal Medicine 06/22/24
--- OUTSIDE RECORDS SUMMARY | 2024-07-28 12:21 | XMS_ITS | Clinical Summary ---
Author Organization [facility] Address [address] [place] [address] Care Team Providers Care First Responder Name Role Phone Valentine Polanco MD Primary [...] 01/31/2024 9:34 AM EDT Plan of Treatment Health Maintenance Due Date Last Done Comments Cologuard 1955 Colon Cancer Screening 1955 Colonoscopy 1955 FOBT / Fit Test 1955 Hepatitis C Screening [address] Lung Cancer Screening (Baseline) 01/05/2004 Abdominal Aortic Aneurysm (AAA) Screening 2019 COVID-19 Vaccine ( season) 2023 02/26/2023, 03/06/2022, 03/14/2021, Additional history exists Alcohol/Substance Use Screening 04/16/2024 Depression Screening and Follow-Up 04/16/2024 Health Care Proxy Review 04/16/2024 Social Drivers of Health Annual Screening 04/16/2024 Influenza Vaccine (Season Ended) 2024 02/26/2023, 03/06/2022, 01/28/2020, Additional history exists RSV Vaccine (60+ years old and patients) (1 - 1-dose 75+ series) 2029 DTaP,Tdap,and Td Vaccines (2 - Td or Tdap) 01/30/2034 01/31/2024 Zoster Vaccines Completed 11/13/2020, 09/07/2020 Pneumococcal Vaccine: 50+ Years Completed 03/23/2023, 03/14/2021, 10/29/2014 Hepatitis B Vaccines Aged Out No long er eligible based on patient's age to complete this topic Insurance [address] [place] [id number] [facility] [place] [address] WORKERS COMPENSATION Care Teams First Responder Relationship Specialty Start Date End Date Valentine Polnaco MD [address] [place] [address] [place] [address] PCP - General 01/31/24
== END 2024-07-28 12:57 | disposition home or self-care (01) ==
PROVIDERS: PCP Internal Medicine; Visit Provider Internal Medicine
DX: Z01.818 Encounter for other preprocedural examination (principal); H61.23 Impacted cerumen, bilateral; J43.2 Centrilobular emphysema; F10.90 Alcohol use, unspecified, uncomplicated

== ENCOUNTER → 2024-07-28 10:40 | Outpatient (BNVA) | payer OTHER, SELFPAY | PROVIDERS: PCP Internal Medicine; Visit Provider Internal Medicine | DX: Z13.89 Encounter for screening for other disorder (principal) ==

== ENCOUNTER 2025-03-11 15:52 | Outpatient (REF) | payer OTHER, SELFPAY ==
--- NOTE | ~2025-03-11 | CT_ITS ---
EXAMINATION: CT LOW-DOSE SCREENING CHEST WITHOUT CONTRAST CLINICAL INFORMATION: Z87.891 - Personal history of nicotine dependence COMPARISON: CT lung screening on March 06, 2024 TECHNIQUE: Multidetector volumetric CT imaging of the chest is performed on a Siemens SOMATOM Definition scanner without contrast using low dose technique. Additional 2D coronal and sagittal reformatted images and axial 3D maximum intensity projection (MIP) images are generated on the CT workstation. This CT examination was performed using dose optimization techniques as appropriate, variously including the following: *Automated exposure control *Adjustment of mA and/or kV according to patient size (this includes techniques or standardized protocols for targeted exams where dose is matched to indication/reason for exam; i.e. extremities or head) *Use of iterative reconstruction technique Due to technical issues, axial thin slices and axial MIPS sequences are not available for review. CTDIvol: 1.18 mGy. FINDINGS: PULMONARY NODULES: No pulmonary nodules larger the 0.2 cm in size. No new or enlarging nodules. LUNGS: Central airways are patent. Mild bronchial wall thickening reflecting nonspecific bronchitis. No lung consolidation. MEDIASTINUM: No bulky adenopathy. CORONARY ARTERY CALCIFICATION: Moderate amount of calcifications THYROID GLAND: Unremarkable to the extent seen. CARDIOVASCULAR STRUCTURES: Heart is normal in size. Calcifications along the thoracic aorta and great vessels. No pericardial effusion. CHEST WALL/AXILLA: Unremarkable. UPPER ABDOMEN: Vascular calcifications. OSSEOUS STRUCTURES: No suspicious focal findings. CT/CT lung screening IMPRESSION: Small pulmonary nodules measuring less than 0.2 cm. ASSESSMENT: 1. Lung-RADS Category 2: Benign appearance or behavior of nodules. 2. Lung-RADS Category S: Negative. There are no clinically significant or potentially clinically significant findings not related to the lungs requiring urgent additional evaluation. 3. Moderate coronary artery calcifications. RECOMMENDATION: Continued routine annual low-dose CT lung screening in 1 year is recommended. An order for CT CHEST LOW DOSE CANCER SCREENING ([id number]) can be placed. Electronically signed by: Karina Peres MD 03/11/2025 05:00 PM [facility]
--- OUTSIDE RECORDS SUMMARY | 2025-03-11 17:53 | XMS_ITS | Clinical Summary ---
Author Organization [facility] Address [address] [place] [phone] Phone Care Team Providers Care Production Artist Name Role Phone Valentine Polanco MD Primary Care Provider [phone] Allergies No known active allergies Medications umeclidinium-sharon anteroL (ANORO ELLIPTA) 62.5-25 mcg/actuation inhaler Inhale 1 puff by mouth 1 (one) time each day. 1 each 1 06/22/2024 Active Active Problems Problem Noted Date Diagnosed Date COPD exacerbation ([facility] V24, [facility] V28) 11/2024 Medical History Medical History Date Comments COPD exacerbation ([facility] V24, [facility] V28) 11/2024 Tobacco abuse Alcohol use Social History Tobacco Use Types Packs/Day Years Used Date Smoking Tobacco: Every Day Cigarettes Tobacco Cessation:Ready to Q uit: Not Asked; Counseling Given: Not Answered Interpersonal Safety Answer Date Record ed Physical Abuse Unrecognized value 06/21/2024 Verbal Abuse Unrecognized value 06/21/2024 Sex and Gender Information Value Date Recorded Sex Assigned at Not on file Legal Sex Male 7:57 PM EST Gender Identity Not on file Sexual Orientation Not on file Obstetrics History Last Filed Vital Signs Vital Sign Reading Time Taken Comments Blood Pressure 130/48 06/22/2024 8:18 AM EDT Pulse 67 06/22/2024 8:18 AM EDT Temperature 36.5 C (97.7 F) 06/22/2024 8:18 AM EDT Respiratory Rate 18 06/22/2024 8:18 AM EDT Oxygen Saturation 99% 06/22/2024 8:18 AM EDT Inhaled Oxygen Concentration - - Weight 63.5 kg (139 lb 15.9 oz) 06/21/2024 6:48 PM EST Height 172.7 cm (5' 7.99 ) 06/21/2024 6:48 PM ES T Body Mass Index 21.29 06/21/2024 6:48 PM EST Plan of Treatment Health Maintenance Due Date Last Done Comments Colorectal Cancer Screening: Colonoscopy 1954 RSV Immunization Adult Patients (1 - Risk 50-74 years 1-dose series) 01/05/2004 Abdominal Aortic Aneurysm (AAA) Screen 03/18/2022 Cholesterol Screening (Lipid Panel) 03/18/2022 Hepatitis C Screening 03/18/2022 Social Influencers of Health Screening 03/18/2022 Depression Screening 04/16/2024 COVID-19 Vaccine ( season) 2024 02/26/2023, 03/06/2022, 03/14/2021, Additional history exists Influenza Vaccine (#1) 2024 , 03/06/2022, 01/28/2020, Additional history exists Falls Risk [...] patient's age to complete this topic Insurance MEDICARE [facility] Advance Directives * Full Code - Confirmed [...] currently active code status orders. Care Teams Production Artist Relationship Specialty Start Date End Date Valentine Polanco MD PCP - General Internal Medicine 06/22/24
--- OUTSIDE RECORDS SUMMARY | 2025-03-11 17:53 | XMS_ITS | Clinical Summary ---
Author Organization [facility] Address [address] [place] [address] Care Team Providers Care Tailoring Teacher Name Role Phone Valentine Polanco MD Primary [...] 68 02/08/2024 7:17 AM EDT Temperature 36.6 C (97.8 F) 02/08/2024 7:17 AM EDT Respiratory Rate 17 02/08/2024 7:17 AM EDT [...] 1954 CT Lung Cancer Screening (Baseline) 01/05/2004 Alcohol/Substance Use Screening 04/16/2024 Depression Screening and Follow-Up 04/16/2024 Fall Risk Screening 04/16/2024 Health Care Proxy Review 04/16/2024 Social Drivers of Health Annual Screening 04/16/2024 Influenza Vaccine (#1) 2024 , 03/06/2022, 01/28/2020, Additional history exists COVID-19 Vaccine ( season) 2024 02/26/2023, 03/06/2022, 03/14/2021, Additional history exists RSV Vaccine (60+ years old and patients) (1 - 1-dose 75+ series) 2029 DTaP,Tdap,and Td Vaccines (2 - Td or Tdap) 01/30/2034 01/31/2024 Zoster Vaccines Completed 11/13/2020, 09/07/2020 Pneumococcal Vaccine: 50+ Years Completed 03/23/2023, 03/14/2021, 10/29/2014 Hepatitis B Vaccines Aged Out No long er eligible based on patient's age to complete this topic Insurance [address] [place] [id number] [facility] [address] [place] [address] [place] [id number] Care Teams Tailoring Teacher Relationship Specialty Start Date End Date Valentine Polanco MD [address] [place] [address] PCP - General 01/31/24
== END 2025-03-11 15:53 | disposition home or self-care (01) ==
LOC: HO.CT 15:52
PROVIDERS: PCP Internal Medicine; Visit Provider Physician Assistant Medical
DX: Z87.891 Personal history of nicotine dependence (principal)
CPT/HCPCS: 71271

== ENCOUNTER → 2025-03-11 15:55 | Outpatient (BNV) | payer OTHER, SELFPAY | PROVIDERS: PCP Internal Medicine; Visit Provider Radiology Body Imaging | DX: F17.210 Nicotine dependence, cigarettes, uncomplicated (principal) | CPT/HCPCS: 71271 ==